=== PATIENT | male | born 1930 | race Caucasian/White ===

== ENCOUNTER 2018-10-11 11:21 | Emergency (ER) | payer MEDICARE ==
[2018-10-11] MEDS ORDERED: Morphine 4 MG/ML VIAL ONE (11:59)
[2018-10-11 12:20] LABS: #Lymphocytes 1.6 thou/uL (1.20-3.40); #Monocytes 1.5 thou/uL (0.11-0.59); %Basophils 0.2 % (0.0-1.0); %Eosinophils 0.5 % (0.0-10.0); %Lymphocytes 15.9 % (21.0-51.0); %Monocytes 14.7 % (0.0-10.0); %Neutrophils 68.7 % (42.0-75.0); Hemoglobin 11.3 g/dL (14.0-18.0); Mean Corpuscular HGB CONC 33.9 g/dL (32.0-36.0); Mean Corpuscular Hemoglobin 32.4 pg (27.0-31.0); Mean Corpuscular Volume 95.6 fL (78.0-98.0); Mean Platelet Volume 6.7 fL (7.4-10.4); Platelet Count 170 thou/uL (130-400); RBC Distribution Width 13.8 % (11.5-14.5); White Blood Cell (WBC) Count 10.1 thou/uL (4.8-10.8)
[2018-10-11 12:36] LABS: ALT (SGPT) 14 U/L (8-55); AST (SGOT) 11 U/L (5-34); Albumin 3.5 g/dL (3.4-4.8); Alkaline Phosphatase 49 U/L (40-150); Anion Gap 13 mmol/L (10-20); BUN (Urea Nitrogen) 22 mg/dL (8.4-25.7); Bilirubin, Total 0.9 mg/dL (0.2-1.2); Calc. Creatinine Clearance 0 mL/min (70-130); Calcium 8.8 mg/dL (7.8-10.44); Carbon Dioxide 23 mmol/L (23-31); Chloride 104 mmol/L (98-107); Estimated GFR-MDRD 62; Globulin 2.8 g/dL (2.4-3.5); Glucose 121 mg/dL (83-110); Potassium 3.9 mmol/L (3.5-5.1); Protein, Total 6.3 g/dL (5.8-8.1); Sodium 136 mmol/L (136-145)
--- NOTE | 2018-10-11 13:02 | CT ---
Lumbar spine CT noncontrast CLINICAL HISTORY: Pain FINDINGS: There is extensive, multilevel degenerative change throughout the lumbar spine. Evidence of posterior metallic fusion spanning posterior elements at the upper lumbar spine with marked associated osseous fusion and hypertrophy. No definite evidence of acute compression fracture. Multil evel endplate irregularities are favored to reflect degenerative sclerosis and Schmorl's node formation. No significant subluxation. Contents of vertebral canal limited in assessment on the basis of noncontrast CT imaging. 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 T here is diffuse vascular calcification. Colonic diverticulosis is present. There is a prominent right convexity curvature centered at the upper lumbar spine. Incidental note of paraspinous muscular atrophy. IMPRESSION: Extensive degenerative change throughout lumbar spine without definite acute osseous abnormality. Transcribed Date/Time: 10/11/2018 1:15 PM
[2018-10-11] MEDS ORDERED: Dexamethasone 10 MG/ML VIAL ONE (13:49)
[2018-10-11 15:53] LABS: Bilirubin Negative (Negative); Blood, Urine Negative (Negative); Clarity CLOUDY (Clear); Glucose, Urine (Dipstick) Negative (Negative); Leukocyte Large (Negative); Nitrite Positive (Negative); Protein, Urine (Dipstick) Negative (Neg-Trace); Specific Gravity, Urine 1.011 (1.002-1.036); Urobilinogen 0.2 mg/dL (0.2-1.0)
[2018-10-11 15:56] LABS: Bacteria/HPF 4+ HPF (None Seen); Hyaline Casts/LPF 4-6 HYALINE CAST LPF (0-3 Hyaline); Pathc Cast-AUWi Flag 0.27 (0-2.49); RBC/HPF 0-3 HPF (0-3)
== END 2018-10-11 18:28 ==
LOC: ERS 11:21
DX: M54.5 Low back pain (principal); R26.2 Difficulty in walking, not elsewhere classified; K21.9 Gastro-esophageal reflux disease without esophagitis; I25.10 Atherosclerotic heart disease of native coronary artery without angina pectoris; E78.5 Hyperlipidemia, unspecified; I10 Essential (primary) hypertension; Z79.899 Other long term (current) drug therapy; Z79.01 Long term (current) use of anticoagulants; Z79.82 Long term (current) use of aspirin
CPT/HCPCS: 36415; 72131; 80053; 81003; 81015; 85025; 96361; 96374; 96375; J1100; J2270

== ENCOUNTER 2018-10-28 13:39 | Inpatient (IN) | payer MEDICARE ==
[~2018-10-28 13:39] MED LIST: ISOVUE-370 76%-LOCM 1 ML ONE
[2018-10-28] MEDS ORDERED: Acetaminophen 500 MG TAB PO PRN (17:17)
[2018-10-28] MEDS ORDERED: Senokot S 8.6-50 MG TAB PO PRN (17:17)
[2018-10-28] MEDS ORDERED: hydrALAZINE 20 MG/ML VIAL SLOW IVP PRN (17:17)
[2018-10-28] MEDS ORDERED: Ondansetron PF 4 MG/2 ML Vial IVP PRN (17:17)
[2018-10-28] MEDS ORDERED: Ondansetron ODT 4 MG TAB PO PRN (17:17)
[2018-10-28] MEDS ORDERED: HYDROcodone/Acetaminophen 5/325 mg Tablet PO PRN (17:17)
[2018-10-28] MEDS ORDERED: Cyclobenzaprine 10 MG TAB PO PRN (17:55)
[2018-10-28 17:58] VITALS: BMI 27.3
[2018-10-28] MEDS ORDERED: predniSONE 20 MG TAB PO SCH (18:00)
[2018-10-28] MEDS: Mometasone/Formoterol 120 PUFF INHALER INH SCH (19:08)
[2018-10-28] MEDS: Famotidine 20 MG TAB PO SCH (19:59)
[2018-10-28] MEDS: Docusate 100 MG CAP PO SCH (19:59)
[2018-10-28] MEDS: Gabapentin 100 MG CAP PO SCH (20:00)
[2018-10-28] MEDS: Ezetimibe 10 MG TAB PO SCH (20:00)
[2018-10-28] MEDS: Melatonin 3 MG TAB PO SCH (20:00)
[2018-10-28] MEDS: Sotalol HCl 80 MG TAB PO SCH (20:00)
[2018-10-28] MEDS: cycloSPORINE 0.05% Ophthalmic Droperette EA EYE SCH (21:24)
--- NOTE | 2018-10-28 22:30 | CT ---
CT Pelvis W Con History: [Hip pain] Comparison: Radiograph October 21, 2018 Findings: The urinary bladder is markedly distended. No free fluid within the pelvis. Mild bilateral lateral thigh edema. Advanced degenerative changes of the lumbar spine. Aortic contour is nonaneurysmal there is abnormal erosions of the anterior inferior L4 and anterior superior L5 endplate on the right mild adjacent soft tissue edema. This has progressed from the October 11, 2018 examination. Aortic contour is normal. Iliac vessels are normal. There is a displaced cerclage wire along the medial components of the acetabulum near the femoral art iculation. Obturator rings are intact. Fractured inferior cerclage wire. Old right trochanter injury. Impression: Findings highly concerning for discitis/osteomyelitis at the right anterior L4/L5 intersp tom with new osseous erosion as well as adjacent fat stranding.
[2018-10-28] MEDS: HYDROcodone/Acetaminophen 5/325 mg Tablet PO PRN (22:32)
--- NOTE | 2018-10-29 00:01 | PDOC.EVN ---
Event Note - Event Note Event Note: CT of pelvis showed findings highly concerning for osteomyelitis at the right anterior L4-L5 interspace with new osseous erosion and fat stranding. Discussed with Dr. Sanders. Blood cultures pending, along with CBC and BMP. Empiric coverage with Zosyn and Vanc.
[2018-10-29 00:29] LABS: #Lymphocytes 1.3 thou/uL (1.20-3.40); #Monocytes 0.2 thou/uL (0.11-0.59); #Neutrophils 6.7 thou/uL (1.40-6.50); %Basophils 0.5 % (0.0-1.0); %Eosinophils 0.2 % (0.0-10.0); %Lymphocytes 15.5 % (21.0-51.0); %Monocytes 2.4 % (0.0-10.0); %Neutrophils 81.5 % (42.0-75.0); Hemoglobin 11.9 g/dL (14.0-18.0); Mean Corpuscular HGB CONC 33.3 g/dL (32.0-36.0); Mean Corpuscular Hemoglobin 32.4 pg (27.0-31.0); Mean Platelet Volume 6.6 fL (7.4-10.4); Platelet Count 288 thou/uL (130-400); RBC Distribution Width 13.2 % (11.5-14.5); Red Blood Cell (RBC) Count 3.68 mill/uL (4.70-6.10); White Blood Cell (WBC) Count 8.3 thou/uL (4.8-10.8)
[2018-10-29] MEDS ORDERED: Vancomycin HCl 1.75 GM in Sodium Chloride 0.9% 500 ML IVPB SCH (00:30)
[2018-10-29 00:50] LABS: Anion Gap 14 mmol/L (10-20); BUN (Urea Nitrogen) 23 mg/dL (8.4-25.7); Calc. Creatinine Clearance 74 mL/min (70-130); Carbon Dioxide 25 mmol/L (23-31); Chloride 99 mmol/L (98-107); Estimated GFR-MDRD 85; Glucose 149 mg/dL (83-110); Potassium 4.6 mmol/L (3.5-5.1); Sodium 133 mmol/L (136-145)
--- NOTE | 2018-10-29 00:59 | HP ---
PRIMARY CARE PROVIDER: Joaquin Benavidez MD CHIEF COMPLAINT: Back and right hip pain. HISTORY OF PRESENT ILLNESS: This is an 88-year-old male, who initially presented to [facility] on 10/11/2018 with complaints of right hip and lower back pain for approximately 1 week duration. The patient states he woke up with inability to sit upright or stand without severe pain in his back with radiation to the right hip and anterior thigh. The patient initially rated the pain 10/10 with activity, turning, or bending. The patient denied any direct trauma, injury, or fall, but does state he has intermittent pain in the area over the last several years. The patient has been using a cane for ambulation for stability, but denied falls. The patient was evaluated in the emergency room on 10/11/2018, and deemed an appropriate candidate for inpatient rehabilitation. The patient transferred from the emergency room to [facility] where he has been receiving directed therapy for his right hip and lower back. The patient states the pain has increased and he is unable to participate in the rehab program due to severe pain when turning, sitting up, or even attempting to eat at the bedside. The patient states the pain localizes to the right hip region with some radiation into the thigh, but rarely [id number]. The patient denies any foot drop, swelling of the lower extremities, but does state that he underwent right total hip arthroplasty in 1999. The patient has had several radiographic imaging of the hip and pelvic x-ray over the last 2 to 3 weeks without an identifiable source. The patient has been given a trial of gabapentin, [place], heat therapy, and general stretching exercises to no avail. The patient was referred to the Inpatient Hospitalist Service for further evaluation and consideration for neurosurgical and orthopedic evaluation. PAST MEDICAL HISTORY: 1. Hypertension. 2. Coronary artery disease, status post cardiac stent placement x3. 3. Obstructive sleep apnea. 4. Osteoarthritis, status post right total hip arthroplasty. 5. 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 6. History of scoliosis, status post lumbar surgical repair in the 1950s. 7. Heart block, status post pacemaker placement. PAST SURGICAL HISTORY: 1. Status post cardiac stent placement x3. 2. Status post coronary artery bypass grafting. 3. Status post right total hip arthroplasty in 1999. 4. Status post lumbar spine surgery. 5. Status post pacemaker placement. 6. Status post tonsillectomy. CURRENT MEDICATIONS: 1. Eliquis 5 mg p.o. b.i.d. 2. Colace 100 mg p.o. b.i.d. 3. Zetia 10 mg p.o. at bedtime. 4. Breo Ellipta 200/25 mcg inhaled daily. 5. Gabapentin 200 mg p.o. t.i.d. 6. [place] 5/325 mg 1 to 2 tablets p.o. q.4 to 6 hours p.r.n. 7. Melatonin 3 mg p.o. at bedtime. 8. Protonix 40 mg p.o. daily. 9. MiraLAX 17 g p.o. daily. 10. Ranexa 1000 mg p.o. b.i.d. 11. Restasis ophthalmic drops 1 drop to each eye b.i.d. 12. Sotalol 120 mg p.o. b.i.d. 13. Flomax 0.8 mg p.o. daily. ALLERGIES: CAPTOPRIL, HYDROCHLOROTHIAZIDE, PRAVACHOL. FAMILY HISTORY: No inheritable diseases per patient's report. SOCIAL HISTORY: The patient is a lifetime resident of [facility]. Retired. No current alcohol, tobacco, or illicit drug use. Ambulates with the use of a cane or rolling walker. . REVIEW OF SYSTEMS: CONSTITUTIONAL: Negative for weight loss or gain, ability to conduct usual activities. SKIN: Negative for rash, itching. EYES: Negative for double vision, pain. ENT/MOUTH: Negative for nose bleeding, neck stiffness, pain, tenderness. CARDIOVASCULAR: Negative for palpitations, dyspnea on exertion, orthopnea. RESPIRATORY: Negative for shortness of breath, wheezing, cough, hemoptysis, fever or night sweats. GASTROINTESTINAL: Negative for poor appetite, abdominal pain, heartburn, nausea, vomiting, constipation, or diarrhea. GENITOURINARY: Negative for urgency, frequency, dysuria, nocturia. MUSCULOSKELETAL: Positive tenderness to palpation in the right lateral gluteal region and acetabular and greater trochanter region on the right. Reproducible tenderness to palpation with deep palpation in the piriformis distribution. Mild tenderness to palpation in the right SI joint region. Postsurgical changes noted in the lumbar spine. No erythema or evidence of cellulitis. Full passive range of motion of the hip with mild tenderness elicited with internal rotation. NEUROLOGIC/PSYCHIATRIC: Negative for anxiety, depression. ALLERGY/IMMUNOLOGIC: Negative for skin rash, bleeding tendency. Otherwise, negative except as stated per HPI. PHYSICAL EXAMINATION: VITAL SIGNS: On admission, blood pressure 136/74, pulse 66, respiratory rate 16, temperature 98.8 degrees Fahrenheit, and O2 saturation 98% on room air. GENERAL APPEARANCE: This is an 88-year-old male, alert and oriented x3, pleasant, responsive, and in no acute distress. HEENT: Pupils are equal, round, reactive to light and accommodation. Extraocular muscles are intact. No scleral icterus. No conjunctival injection. Nares patent. OP is clear. Teeth in fair repair. NECK: Supple. No cervical adenopathy. No thyromegaly. No carotid bruits. No JVD appreciated. Cervical spine with full active and passive range of motion. No meningeal signs noted. CHEST: Lungs are clear to auscultation bilaterally. CARDIOVASCULAR: S1 and S2 without noted murmur, rub, or gallop. ABDOMEN: Rounded, soft, nontender, and nondistended. Bowel sounds are positive in all 4 quadrants. There is no hepatosplenomegaly. No abdominal bruits. No rebound or guarding appreciated. EXTREMITIES: Warm and dry with fair turgor. No clubbing, cyanosis, or asymmetric edema noted of bilateral lower extremities. Pulses palpable distally at the dorsalis pedis, posterior tibial, and popliteal arteries bilaterally. Capillary refill less than 2 seconds. NEUROLOGIC: Cranial nerves 2 through 12 are grossly intact. No focal or lateralizing signs appreciated. PERTINENT LABORATORY DATA AND X-RAY FINDINGS: Laboratory data reviewed from 10/16/2018 showed basic metabolic profile within normal limits. BNP 355 on 10/16/2018. CBC showed a white blood cell count 8.6, hemoglobin 11, hematocrit 34, and platelet count 225 with normal differential. Pelvic radiographs dated 10/20/2018 showed abnormal lucency surrounding the acetabular component on the right. Question of dislocation of the right hip prosthesis. Three views of the right hip dated 10/21/2018 showed no evidence for dislocation. ASSESSMENT AND PLAN: 1. Intractable lumbar/right hip pain. The patient will be admitted to the surgical floor. Suspect musculoskeletal in origin with piriformis etiology. Check CT of the pelvis with attention to the right hip to confirm hardware placement. Trial prednisone 40 mg daily. Add Flexeril 5 mg p.o. b.i.d. p.r.n. muscle spasm. Continue gabapentin 200 mg p.o. t.i.d. [id number] exercises. Consult Orthopedic Surgery and Neurosurgical Services for evaluation to rule out more proximal or nerve impingement. 2. Lumbar radiculopathy. We will consult Neurosurgical Services for any further recommendations. The patient likely will benefit from CT myelogram; however, will need to be off anticoagulation with Eliquis x7 days. See #1 above. 3. Chronic anticoagulation. Eliquis on hold currently. See #2 above. 4. Hypertension. Resume home blood pressure regimen and monitor clinical response. 5. Chronic normocytic anemia. Stable currently. No current evidence to suggest acute blood loss. Repeat CBC in the a.m. 6. Prophylaxis. SCDs while in bed. Protonix 40 mg p.o. daily. PT/OT evaluation for functional assessment. General fall risk precautions. 7. Code status is full. Surrogate medical decision maker is the patient's spouse. Job ID: [id number]
[2018-10-29] MEDS: Piperacillin/Tazobactam 4.5 GM in Sodium Chloride 0.9% 100 ML IVPB SCH ×3 (05:10→22:13)
[2018-10-29 05:29] LABS: Anion Gap 13 mmol/L (10-20); BUN (Urea Nitrogen) 24 mg/dL (8.4-25.7); Calc. Creatinine Clearance 75 mL/min (70-130); Calcium 8.7 mg/dL (7.8-10.44); Carbon Dioxide 26 mmol/L (23-31); Chloride 101 mmol/L (98-107); Estimated GFR-MDRD 87; Glucose 140 mg/dL (83-110); Potassium 4.6 mmol/L (3.5-5.1); Sodium 135 mmol/L (136-145)
[2018-10-29 05:31] LABS: Mean Corpuscular HGB CONC 32.8 g/dL (32.0-36.0); Mean Corpuscular Hemoglobin 31.9 pg (27.0-31.0); Mean Corpuscular Volume 97.2 fL (78.0-98.0); Mean Platelet Volume 6.7 fL (7.4-10.4); Platelet Count 288 thou/uL (130-400); RBC Distribution Width 13.3 % (11.5-14.5); Red Blood Cell (RBC) Count 3.46 mill/uL (4.70-6.10)
[2018-10-29 05:32] LABS: Hypochromia SLIGHT = 6-15 cells (100X) (0-5/hpf); Lymphocytes 10 % (21-51); MDiff Complete? YES; Monocytes 6 % (0-10); Neutrophil 84 % (42-75); Platelet Morphology Comment Appears Adequate
[2018-10-29] MEDS: Mometasone/Formoterol 120 PUFF INHALER INH SCH ×2 (07:30→18:15)
[2018-10-29] MEDS: Famotidine 20 MG TAB PO SCH ×2 (08:45→20:28)
[2018-10-29] MEDS: Gabapentin 100 MG CAP PO SCH ×3 (08:45→20:27)
[2018-10-29] MEDS: Sotalol HCl 80 MG TAB PO SCH ×2 (08:45→20:26)
[2018-10-29] MEDS: Tamsulosin HCl 0.4 MG CAP PO SCH (08:45)
[2018-10-29] MEDS: Polyethylene Glycol 3350 17 GM Packet PO SCH (08:45)
[2018-10-29] MEDS: Vancomycin HCl 1 GM in Premix Bag 1 BAG IVPB SCH ×2 (08:45→20:28)
[2018-10-29] MEDS: predniSONE 20 MG TAB PO SCH (08:46)
[2018-10-29] MEDS: Docusate 100 MG CAP PO SCH ×2 (08:46→20:28)
[2018-10-29] MEDS: cycloSPORINE 0.05% Ophthalmic Droperette EA EYE SCH ×2 (08:49→20:28)
[2018-10-29] MEDS ORDERED: Non-Formulary Item 1 EACH (Fluticasone/Vilanterol [Breo Ellipta 200-25 Mcg Inh] 1 EACH) IH SCH (09:00)
--- NOTE | 2018-10-29 12:38 | CON ---
DATE OF CONSULTATION: 10/29/2018 CONSULTING PHYSICIAN: Julio Cesar Pope MD REASON FOR CONSULTATION: Right hip and thigh pain. BRIEF CLINICAL HISTORY: Vicente is an 88-year-old white male, who has a complex history of subacute right hip and buttock pain, which started 3 to 4 weeks ago resulting in the patient being admitted from home into inpatient rehabilitation. While over there, he has been evaluated with a lumbar CT and thoughts of whether or not, he had a high lumbar radiculopathy. CT myelogram then obtained and he has been treated, but with epidural steroids and selective injections, I believe, during his convalescence there. He failed to get appreciable better and his chief complaint now is that he cannot stand and walk as he did 2 or 3 weeks ago. His surgical history is significant for a primary hip arthroplasty in 1999 here in [place] by physicians no longer practicing here. A revision arthroplasty was used as a primary of note, but he has not had any trouble out of it since for the last 18 to 19 years. Only recently has given him any trouble, which required hospitalization. He has been admitted to the hospital for neurosurgical and orthopedic evaluation. PAST MEDICAL HISTORY: Significant for coronary artery bypass grafting. He has had lumbar spine surgery, pacemaker implantation, and vascular disease. He has hypertension, obstructive sleep apnea, and history of heart block. MEDICATIONS: 1. Eliquis. 2. Colace. 3. Zetia. 4. Gabapentin. 5. Melatonin. 6. [place]. 7. Protonix. 8. MiraLAX. 9. Ranexa. 10. Sotalol. 11. Flomax. SOCIAL HISTORY: He is a lifetime resident of the area and he denies any ethanol or tobacco use or illicit drug abuse currently. He is . He ambulates with use of a rolling walker, but that has been very difficult for the last week or two. REVIEW OF SYSTEMS: Denies any fever, chills, nausea, vomiting, or constitutional symptoms. PHYSICAL EXAMINATION: EXTREMITIES: Visual inspection of the right lower extremity demonstrates him to have provocative pain with range of motion of the right hip. It appears to have a nice pivot point and does not feel as if it is dislocated. There is some shortening noted, but there is no external rotation and I do not feel the hip is dislocated at this point. He is neurovascularly intact in the extremity. He has provocative pain with internal-external rotation. IMAGING STUDIES: Two views of right hip demonstrates lucency around his prosthesis with suggestion of loosening of the acetabular cup and what I think might be an effusion. IMPRESSION: Right hip periprosthetic effusion. X-ray suggestive of loosening. PLAN: 1. Sedimentation rate, C-reactive protein have been ordered and will be drawn. 2. We will schedule a directed fluoroscopic-guided arthrocentesis of the right hip concerning for effusion. Consider bone scan if this is nonproductive. Job ID: [id number]
--- NOTE | 2018-10-29 14:45 | RAD ---
Right total hip prosthetic joint fluoroscopic guided aspiration INDICATION: Concern for infected right total hip prosthesis TECHNIQUE: Informed consent was obtained. A preprocedure timeout was performed. Preprocedure software technical lead im ages were performed. Site overlying the anterolateral aspect of the right hip was marked. The site was prepped and draped in the usual sterile fashion. Buffered 1% lidocaine was administered to the ov erlying subcutaneous tissues. Under fluoroscopic guidance, an 18-gauge spinal needle was guided down into the right hip joint by fluoroscopy. There was aspiration of 4 cc of a yellow appearing slig htly sanguinous synovial fluid. The patient tolerated the aspiration without difficulty. The total fluoroscopic time was 0.3 minutes. Total exposure was 46.1 mcg/sq m. The aspiration site was cleansed and bandaged. FINDINGS: The software technical lead images are compared to a right hip radiograph dated 10/21/2018. The displaced righ t greater trochanteric periprosthetic fracture is unchanged. The fractured cerclage band is unchanged. The prosthetic components project in expected position and do not appear to have intervall y migrated. There are scattered vascular calcifications within the adjacent soft tissues. IMPRESSION: Successful right total hip prosthetic joint aspiration with retrieval of 4 cc of yellow s lightly sanguinous synovial fluid. The fluid was placed in a sterile container and escorted to the pathology department for further evaluation.
--- NOTE | 2018-10-29 17:06 | PRG ---
DATE OF SERVICE: SUBJECTIVE: The patient feels okay at the moment, fairly comfortable, tolerated the hip joint aspiration today well. OBJECTIVE: VITAL SIGNS: Temperature 98.8, pulse 63, respirations 16, O2 saturation 99% on room air, and BP 137/64. GENERAL APPEARANCE: Age-appropriate male, in no distress. He is awake, alert, oriented, pleasant, and cooperative. HEART: Regular rate and rhythm without murmurs, gallops or rubs. LUNGS: Clear to auscultation bilaterally. ABDOMEN: Soft, nontender, and nondistended. Positive bowel sounds. EXTREMITIES: Warm and dry with no cyanosis, clubbing or edema. LABORATORY DATA: White count 8.0 and hemoglobin 11. Chemistry; sodium 135 and glucose 140. IMPRESSION AND PLAN: 1. Right low back and hip pain, etiology unclear. The patient was in rehab and had epidural injections there, which did not work to resolve his pain after he failed oral pain medications. The patient has been seen by in consultation by Ortho and Neurosurgery. There was some concern for the possibility of right hip joint effusion and he had CT-guided aspiration of that today. There is also concern the patient will need a myelogram, but he was on anticoagulation, which has been held, I believe he was on Eliquis and it does not appear as though he has had any since he has been here and seemed to do well with the joint aspiration today so far with no evidence of any complications. The patient did have a myelogram in August 2016 showing severe osteophyte formation at multiple levels at that time. Pending the results of the aspirate, may need a bone scan or further workup with a CT myelogram. Of note, the patient's CT of the pelvis did show some concern for possible osteomyelitis at L4-L5, which while is still a possibility, likely represents artifact residual from his epidural steroid injection in rehab. In the meantime, continue with pain medications as needed. 2. History of coronary artery disease, stable. He is status post coronary artery bypass graft and stents. 3. History of chronic anticoagulation, currently being held. 4. Hypertension, stable. 5. Chronic normocytic anemia, stable. Job ID: [id number]
[2018-10-29] MEDS: Melatonin 3 MG TAB PO SCH (20:27)
[2018-10-29] MEDS: Ezetimibe 10 MG TAB PO SCH (20:27)
--- NOTE | 2018-10-30 00:07 | CON ---
DATE OF CONSULTATION: REASON FOR CONSULTATION: Possible infection, lumbosacral spine area. HISTORY OF PRESENT ILLNESS: An 88-year-old patient who has a history of hypertension, coronary artery disease, obstructive sleep apnea, and osteoarthritis, who was admitted with right hip and lower back pain for the past week before admission. This has resulted in severe mobility impairment. He was initially transferred to [facility] where he was receiving physical therapy; but because of worsening of the pain, he was transferred to the hospital for further evaluation. Initial findings showed a BP 130/70, pulse 66, respirations 16, temperature 98.8, O2 saturation 98%. He was alert and oriented and did not appear in distress. Neck was supple. Chest with clear lungs. Abdomen, nontender, not distended. There is no description of his back here. Initial white cell count was 8.6, hematocrit 34, platelets 225. The patient had a lumbar spine CT from 10/11/2018, it showed extensive degenerative changes throughout the lumbar spine but no acute osseous abnormality. The patient had a pelvis CT yesterday which showed erosions of the anterior inferior L4 and anterior superior L5 endplate on the right with mild adjacent soft tissue edema, which has progressed from 10/11/2018 exam. Also displaced cerclage wire along the medial components of the acetabulum was noted, so the findings were concerning for diskitis osteomyelitis of the L4-L5 interspace. Currently, Mr. Moreno is surprised that his pain has improved quite rapidly since he was admitted. He denies any headaches. No visual symptoms, sore throat, odynophagia, or dysphagia. No cough, sputum production, or chest pain. No dyspnea. No abdominal pain. He is voiding in the diaper. He is able to move his feet. He cannot sit up without eliciting too much pain. PAST MEDICAL HISTORY: Hypertension, coronary artery disease, JENN, osteoarthritis, chronic low back pain with exacerbation, scoliosis, heart block with pacemaker. PAST SURGICAL HISTORY: Cardiac stent, bypass graft surgery, right hip arthroplasty, laminectomy, pacemaker placement. ALLERGIES: CAPTOPRIL, HYDROCHLOROTHIAZIDE, AND PRAVACHOL. FAMILY HISTORY: Noncontributory. SOCIAL HISTORY: Never smoker. . CURRENT MEDICATIONS: 1. Tylenol. 2. [place]. 3. Flexeril. 4. Restasis. 5. Colace. 6. Zetia. 7. Pepcid. 8. Neurontin. 9. Apresoline. 10. Melatonin. 11. Dulera. 12. Zofran. 13. Protonix. 14. Zosyn. 15. Prednisone. 16. Ranolazine. 17. Betapace. 18. Tamsulosin. 19. Vancomycin. It looks like the prednisone was started here in the hospital and he was not taking it at home according to the list provided. PHYSICAL EXAMINATION: VITAL SIGNS: T-max 98.8, blood pressure 150/99, pulse 63. SKIN: The patient has a peripheral IV access. No Pandey catheter. He did have some urinary retention and had to have a Pandey catheterization, but that has been removed. He is voiding every hour on the hour approximately. HEENT: No lymphadenopathy. Ocular movements conjugate. Oral cavity moist, quite a few missing teeth. NECK: Supple. No jugular venous distention. LUNGS: Symmetric. Clear breath sounds. HEART: S1 and S2. Regular rate. No S3 or S4. ABDOMEN: Soft. Not distended or tender. No ascites. Question of bladder distention. EXTREMITIES: Limitation of mobility because of elicited pain in the lower back. Range of motion of the right hip is limited with pain induced. Pulses are 1+ in dorsalis pedis. No edema. NEURO: He is awake, oriented, follows commands. Speech is normal. Recollection is somewhat limited. LABORATORY DATA: White cell count 8.3 and 8.0, hemoglobin 11.9, MCV 97, platelets 288, 81% neutrophils. Sodium 133, creatinine 0.85, glucose 149, CRP 1.54. Previous urinalysis is from 10/15/2018, with greater than 50, dqp-[id number]-count wbc's. Microbiology, we have E coli from urine long time ago, but more recently Klebsiella pneumoniae, which has a broad susceptibility profile except for cefoxitin and nitrofurantoin. The reports have been discussed above. The patient had a joint aspiration and injection by Dr. Warner. There was 4 mL of yellow slightly sanguinous synovial fluid. This was submitted for culture. ASSESSMENT: 1. Osteoarthrosis. 2. Previous right hip replacement. 3. Chronic lumbosacral spine pain with exacerbation for the past few weeks. 4. Worsening findings in the x-ray of the lumbosacral spine with concern for L4-L5 diskitis and osteomyelitis, and concern with the right hip prosthesis as well in view of the pain radiating to that area. DISCUSSION: Right hip prosthetic changes are not specific for infection. Prosthetic joint infection is notoriously difficult to diagnose. Cultures may be negative sometimes. There is a new test which can identify early prosthetic infections, but I do not think they offer here in town. It would have to be send out and has to be submitted the same day, so I do not believe we would be able to run this test. It is basically a panel or they submit a series of chemical tests from the joint fluid and according to his score of the various components, then the likelihood of presence of joint infection is given. Regarding the findings in the lumbosacral spine, typically those are sometimes not very specific for infection and it is difficult to rule out infection in this circumstance and there are no imaging studies short of having an MRI done that would be able to clarify this issue. Some pacemakers allow MRI performance with certain precautions and conceivably one could inquire with Radiology as to the possibility of performing an MRI and it will depend on the type of pacemaker that was inserted, but again that the newer pacemakers allow performance of MRIs as long as certain types of precautions are taken regarding the function of the pacemaker during the procedure and after as well. Short of that, spinal CT-guided needle aspirates have low yield in the lumbosacral spine unless there is a clear-cut abscess which is not present in this case. We may have to treat empirically with probably Rocephin and vancomycin for a protracted period of time. Job ID: [id number]
[2018-10-30] MEDS: Piperacillin/Tazobactam 4.5 GM in Sodium Chloride 0.9% 100 ML IVPB SCH ×3 (05:22→22:16)
[2018-10-30] MEDS: Mometasone/Formoterol 120 PUFF INHALER INH SCH ×2 (07:06→19:17)
[2018-10-30 09:01] LABS: Vancomycin, Trough 16.5 ug/mL
[2018-10-30] MEDS: Famotidine 20 MG TAB PO SCH ×2 (09:12→20:19)
[2018-10-30] MEDS: Polyethylene Glycol 3350 17 GM Packet PO SCH (09:12)
[2018-10-30] MEDS: Sotalol HCl 80 MG TAB PO SCH ×2 (09:12→20:15)
[2018-10-30] MEDS: Vancomycin HCl 1 GM in Premix Bag 1 BAG IVPB SCH ×2 (09:12→20:19)
[2018-10-30] MEDS: predniSONE 20 MG TAB PO SCH (09:13)
[2018-10-30] MEDS: Gabapentin 100 MG CAP PO SCH ×3 (09:13→20:14)
[2018-10-30] MEDS: Tamsulosin HCl 0.4 MG CAP PO SCH (09:13)
[2018-10-30] MEDS: Docusate 100 MG CAP PO SCH ×2 (09:19→20:19)
[2018-10-30] MEDS: cycloSPORINE 0.05% Ophthalmic Droperette EA EYE SCH ×2 (09:19→22:16)
--- NOTE | 2018-10-30 15:58 | PRG ---
DATE OF SERVICE: 10/30/2018 SUBJECTIVE: The patient reports he is perfectly comfortable. He is lying flat, attempted to get up and on the side of bed this morning and it did not go well at all because he had severe pain. He reports the pain was both in his back and his hip area. OBJECTIVE: VITAL SIGNS: Temperature is 98.1, pulse is 59, respirations 18, O2 sats 93% to 95% on room air, and blood pressure 140/73 to 162/76. GENERAL APPEARANCE: Age-appropriate male. He is in no distress. He is awake, alert, oriented, pleasant, and cooperative. HEART: Regular rate and rhythm without murmur. LUNGS: Clear bilaterally. ABDOMEN: Soft and nontender. EXTREMITIES: Warm and dry with no cyanosis, clubbing, or edema. The patient has significant pain in the back and hip area with attempts at movement. IMPRESSION AND PLAN: 1. Lumbar and right hip pain. Etiology is currently unclear. The possibility of the right hip joint with potential infection, lumbar diskitis/osteomyelitis based on the CT scan and nerve root entrapment with radiculopathy. The patient had lumbar myelogram in August 2016 revealing multilevel degenerative disease with significant and even critical lumbar stenosis. I discussed case with Dr. Calhoun today by phone. He reviewed his records and certainly the patient was not a good surgical candidate then and he believes it is certainly very possible if not probable that is the source of his symptoms currently, recommends repeating the myelogram at this time, which he will order. The patient has been off the Eliquis at least 4 days now. He will follow up with the patient after the myelogram is obtained. He is on vancomycin and Zosyn. He is followed by Dr. Kee, although at this point, without a white count, fever and therapy and sedimentation rate, which are not overwhelming, appears to be less likely that this is infectious in nature. Hip joint aspirate so far has negative culture as well. In the meantime, we will continue with pain management. 2. History of coronary artery disease. The patient also had significant peripheral vascular disease and aortic disease on previous images. He has a history of bypass. Continuing with usual home medication regimen. 3. Hypertension, stable. 4. Chronic normocytic anemia, stable. Job ID: [id number]
--- NOTE | 2018-10-30 16:39 | NM ---
Three-phase bone scan INDICATION: Concern for a right hip prosthetic loosening Radiopharmaceutical: 28.3 mCi of technetium 99m MDP IV FINDINGS: There is no abnormal flow, blood pool or delayed phase activity seen surrounding the patien t's right hip prosthesis to suggest scintigraphic evidence of loosening. The exam is slightly limited due to a prominent amount of urinary contamination overlying the pelvis. There is some sugges kaylee increased flow, blood pool and delayed phase activity about the L4-5 intervertebral level which on a prior CT pelvis examination (on October 28, 2018) was suspicious for involvement of discitis and oste omyelitis. Degenerative activity is seen involving the spine, shoulders, knees and feet. IMPRESSION: 1. 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 2. No definite scintigraphic evidence to suggest right hip prosthetic loosening. 3. Limitations in exam due to prominent urinary contamination
[2018-10-30] MEDS: Melatonin 3 MG TAB PO SCH (20:14)
[2018-10-30] MEDS: Ezetimibe 10 MG TAB PO SCH (20:19)
[2018-10-31] MEDS: Piperacillin/Tazobactam 4.5 GM in Sodium Chloride 0.9% 100 ML IVPB SCH ×3 (05:48→22:27)
[2018-10-31] MEDS: Mometasone/Formoterol 120 PUFF INHALER INH SCH ×2 (06:45→18:45)
[2018-10-31] MEDS: Gabapentin 100 MG CAP PO SCH ×3 (08:29→20:19)
[2018-10-31] MEDS: Tamsulosin HCl 0.4 MG CAP PO SCH (08:29)
[2018-10-31] MEDS: Famotidine 20 MG TAB PO SCH ×2 (08:29→20:18)
[2018-10-31] MEDS: Sotalol HCl 80 MG TAB PO SCH ×2 (08:29→20:19)
[2018-10-31] MEDS: predniSONE 20 MG TAB PO SCH (08:30)
[2018-10-31] MEDS: Vancomycin HCl 1 GM in Premix Bag 1 BAG IVPB SCH ×2 (08:30→20:17)
[2018-10-31] MEDS: Docusate 100 MG CAP PO SCH ×2 (08:47→20:19)
[2018-10-31] MEDS: Polyethylene Glycol 3350 17 GM Packet PO SCH (08:48)
[2018-10-31] MEDS: cycloSPORINE 0.05% Ophthalmic Droperette EA EYE SCH ×2 (08:48→20:25)
--- NOTE | 2018-10-31 10:38 | RAD ---
XR Myelogram Lumbar Spine History: [Pain. Low back pain.] Comparison: CT pelvis October 28, 2018 Findings: Electrotype Servicer radiograph of the abdomen were performed. There are some erosive changes of the right L4/L5 disc space. The exam was not performed as the patient has an infection at L4/L5, discitis osteomyelitis. Advanced degenerative changes throughout the lumbar spine. Impression: Exam not performed due to high risk of intrathecal seeding of infection.
--- NOTE | 2018-10-31 12:56 | PRG ---
DATE OF SERVICE: 10/31/2018 SUBJECTIVE: Mr. Moreno has experienced some improvement in the back pain, but still functionally/mobility impaired. No headaches. No dyspnea or chest pain. No abdominal pain, and he is voiding in the diaper. He has had difficulty in emptying his bladder reportedly. OBJECTIVE: VITAL SIGNS: T-max 98.2, blood pressure 150/90, pulse 67, respirations 16, and O2 saturations 97%. GENERAL: Awake, alert, and oriented. Does not appear in distress. HEENT: Ocular movements conjugate. NECK: Supple. LUNGS: Symmetric, clear breath sounds. CARDIOVASCULAR: S1 and S2, regular rate. ABDOMEN: Soft, not distended. Question of bladder distention. MUSCULOSKELETAL: Still tenderness on mobilization of his waistline and lower extremities from back pain. LABORATORY DATA: White cell count 8.0, hemoglobin 11, platelets 288, 84% neutrophils. Sodium 135, creatinine 0.84. Microbiology, we have negative joint aspirate culture, this is from the hip. I do not think that joint is infected, although it is hard to completely rule it out, a prosthetic joint infection is notoriously difficult to establish the diagnosis. Two sets of blood culture, no growth thus far. The patient had bone scan, which shows uptake in the area of interest and a myelogram was planned, but was canceled by Radiology because of concerns with the area of infection. ASSESSMENT AND DISCUSSION: Osteoarthrosis, previous right hip replacement, chronic lumbosacral spine pain with exacerbation for the past few weeks and worsening findings in the CT scan of the lumbosacral spine with concern for L4-L5 diskitis, osteomyelitis. At this point, I would recommend to continue treatment with IV meropenem and vancomycin in view of the previously identified extended-spectrum beta-lactamase Escherichia coli from urine samples in the past. Continue treatment until the end of November. The endpoint will be improvement of pain and improvement of radiological findings down the road, but pain improvement will be the primary endpoint. Job ID: [id number]
--- NOTE | 2018-10-31 13:03 | PRG ---
DATE OF SERVICE: 10/31/2018 We reviewed the notes of my colleague, Ms. Dillon. Mr. Moreno is an 88-year-old man, known to our Neurosurgical Team, Dr. Calhoun. There was question as to whether the patient had lumbar osteo, diskitis or hip pathology including hip prosthetic infection. I have spoken with our orthopedic colleagues and they do not think that he has a fracture of the hip or orthopedic issue. It is likely coming from his lumbar spine. We cannot get an MRI of the lumbar spine as he has a pacemaker in. It sounds like Dr. Pickens has already spoken with Dr. Calhoun and they are making arrangements regarding possible CT myelogram of the lumbar spine. The patient has significant spondylitic spine with scoliosis and stenosis. I will defer to them as it sounds like this workup is already in the process of being carried out. It should be also noted that Dr. Kee is following and they are maybe empirically treating him for osteo, diskitis. Job ID: [id number]
--- NOTE | 2018-10-31 13:09 | PRG ---
DATE OF SERVICE: 10/31/2018 SUBJECTIVE: The patient is a little better with therapy this morning, still having some difficulty with any position other than lying flat. He has no other new complaints. OBJECTIVE: VITAL SIGNS: Temperature 98.1, pulse 67, respirations 16, O2 saturation 97% on room air, BP 139/75 with 158/98. GENERAL APPEARANCE: Age-appropriate male, in no distress. Awake, alert, oriented, pleasant, and cooperative. HEART: Regular rate and rhythm without murmurs, gallops, or rubs. LUNGS: Clear bilaterally. ABDOMEN: Benign. EXTREMITIES: No cyanosis, clubbing, or edema. IMAGING STUDIES: The myelogram was canceled due to scalp films showing some aggressive changes at L4-L5. IMPRESSION AND PLAN: 1. Back and hip pain. I talked to the radiologist to ultimately determine if we could do an MRI to help confirm the findings on the potential diskitis/osteomyelitis at L4-L5 with the patient's pacemaker. In discussing it with Dr. Miranda, he is convinced that what he is seeing on the CT scan represents clear evolution from the CT scan that was done a couple of weeks ago and represents infectious osteomyelitis/diskitis with some phlegmonous changes extending around to the L4-L5 nerve root and does not believe further imaging will change that. I notified Dr. Ellison of these findings. Also, I have talked to Dr. Kee and casey saw operator as well as the patient. At this point, the plan would be to continue IV antibiotics and allow Dr. Kee to tailor those to the appropriate long-term plan. He will need a PICC line placed and will likely need to go to some type of rehab setting where he can continue to get the IV antibiotics and rehab as the infection/inflammation resolves, so that he can get back on his feet a little better at which time he maybe able to continue as an outpatient. 2. History of coronary artery disease, stable. 3. History of peripheral vascular disease, stable. 4. Hypertension, adequately controlled. 5. Chronic normocytic anemia, stable. Total time dedicated to this patient's visit was 34 minutes. Job ID: [id number]
--- NOTE | 2018-10-31 16:20 | SPC ---
10/31/18 PROCEDURE: PERIPHERAL INSERTION CENTRAL CATHETER INDICATIONS: dedicated intermodal truck driver IV antibiotic treatment for osteomyelitis. FINDINGS: A single lumen 5 Finnish PICC line placed in the right upper extremity via the right basilic vein usin g ultrasound guidance with fluoroscopic confirmation. The tip is positioned in the SVC. PROCEDURE NOTE: Right upper extremity is prepped and draped in the sterile manner. Veins were evaluated with ultrasou nd. The basilic vein in the mid to proximal humerus region was selected for puncture. Local anesthesi a was administered with lidocaine. The vein was punctured under ultrasound guidance with micropunctur e technique. Wire was introduced into the vein. The wire was advanced into the SVC. Catheter length w as then measured and cut. Sheath was placed over the wire. The catheter was then advanced over the wi re. Peel away sheath was removed. The wire was removed. The catheter was flushed and secured with a s terile dressing. There were no problems or complications. POS: [facility]
--- NOTE | 2018-10-31 17:17 | CON ---
DATE OF CONSULTATION: DICTATED: Dr. Reddy Chowdhury. This is a 50-minute initial patient evaluation of which greater than 50% of the exam was spent in counseling and coordinating the patient's care. Remainder of the exam was spent in review of the patient's medical records and review of appropriate imaging studies. CHIEF COMPLAINT: Low back pain with right hip anterior thigh pain. HISTORY OF PRESENT ILLNESS: Mr. Moreno is an 88-year-old male who presents to [facility] for the above complaints. He also has a history of multiple back surgeries and right hip replacement. He states his pain has been present for the past 1 to 2 weeks. However, he has noted over the last few days that he has been admitted to the hospital improvement in his symptoms. He notes no pain when he is lying flat, but anytime he is attempting to mobilize, he has significant right hip pain. He denies recent falls. He does use a cane for ambulation when at home. He was also admitted to inpatient rehab when he initially presented to the emergency room on 10/11/2018, however, states he felt as though he received no benefit from being there. Apparently, his right hip surgery was done in the year 1999. I should note he is also on Eliquis at home for significant cardiac history including pacemaker as well as stents and CABG. Review of the patient's past myelogram CT scan shows no indication of infection at that time in regard to diskitis or osteomyelitis, although this is better evaluated by an MRI. Orthopedic team has been following the patient and even aspirated the patient's hip, which at this point has not grown back anything in regard to cultures. He also had blood cultures drawn, which preliminarily no growth. Dr. Kee is seeing the patient as well, and the patient is currently on penicillin antibiotics as well as vancomycin. I should also note that his ESR is elevated as well as his CRP, which typically is an indication of some sort of infectious process. PHYSICAL EXAMINATION: The patient is awake, alert, and appropriate. He has very good strength in the bilateral lower extremities with intact sensation to light touch throughout. The patient appears to be rather comfortable while lying in bed. DIAGNOSES: 1. Low back pain with right hip pain. 2. Status post right hip aspiration secondary to right hip replacement in 1999. 3. Coronary artery disease, coronary artery bypass grafting and stents, pacemaker, on Eliquis. PLAN: At this time, we would like to ensure that the patient is completely infection-free prior to proceeding with a myelogram CT scan of the lumbar spine. I have discussed this in great detail with the patient and again we would like to make sure that he clears his infection. Likely, we will follow up with him in the next 4 to 6 weeks again to ensure that all of his hip issues are not causing his back issues. Again, I think there is significant risk in the patient undergoing a myelogram CT scan until again he is further evaluated in regard to infectious process. At this time, there is no role for neurosurgical intervention. May be likely that the patient's hip issues are causing his back issues, although of course, there may always be a component of lumbar spine issues causing radicular hip pain. Nonetheless, we will follow up with the patient on an outpatient basis, and he will have to be off his Eliquis prior to any myelogram as well. At this point, I see no reason for the patient not to go back on his Eliquis as again the myelogram can be done on an outpatient basis. Please call with any changes in the patient's neurologic status. Job ID: [id number]
[2018-10-31] MEDS: Apixaban 5 MG TAB PO SCH (20:18)
[2018-10-31] MEDS: Ezetimibe 10 MG TAB PO SCH (20:19)
[2018-10-31] MEDS: Melatonin 3 MG TAB PO SCH (20:19)
[2018-11-01] MEDS: Piperacillin/Tazobactam 4.5 GM in Sodium Chloride 0.9% 100 ML IVPB SCH ×3 (06:38→22:28)
[2018-11-01] MEDS: Mometasone/Formoterol 120 PUFF INHALER INH SCH ×2 (08:25→22:14)
[2018-11-01] MEDS: Vancomycin HCl 1 GM in Premix Bag 1 BAG IVPB SCH ×2 (08:30→20:42)
[2018-11-01] MEDS: Apixaban 5 MG TAB PO SCH ×2 (08:31→20:40)
[2018-11-01] MEDS: Tamsulosin HCl 0.4 MG CAP PO SCH (08:31)
[2018-11-01] MEDS: Famotidine 20 MG TAB PO SCH ×2 (08:31→20:41)
[2018-11-01] MEDS: cycloSPORINE 0.05% Ophthalmic Droperette EA EYE SCH ×2 (08:31→20:53)
[2018-11-01] MEDS: Gabapentin 100 MG CAP PO SCH ×3 (08:31→20:42)
[2018-11-01] MEDS: predniSONE 20 MG TAB PO SCH (08:31)
[2018-11-01] MEDS: Sotalol HCl 80 MG TAB PO SCH ×2 (08:32→20:41)
[2018-11-01] MEDS: Polyethylene Glycol 3350 17 GM Packet PO SCH (08:33)
[2018-11-01] MEDS: Docusate 100 MG CAP PO SCH ×2 (08:33→20:44)
--- NOTE | 2018-11-01 10:08 | PRG ---
DATE OF SERVICE: 10/31/2018 SUBJECTIVE: Vicente is an 88-year-old white male with a complex medical history of intense debilitating back, buttock and thigh pain, which the etiology of which has been difficult to flush out. I decided to watch him engage with physical therapy to see if he is able to ambulate stand. The patient lying in bed in a supine position, has absolutely no pain, but when he attempts to rise up and sit in a vertical position in bed, his pain is intense. He points to the right buttock and back, and he is unable to sit in a vertical position; therefore, he has to lay back down to relieve his discomfort. OBJECTIVE: VITAL SIGNS: Temperature is 98.1, pulse 68, respiratory rate 12 and nonlabored, O2 saturation is 98% on room air, and blood pressure 139/75. GENERAL: He is alert, oriented, and appropriate response with examiner. Tenderness is elicited with palpation in the right SI region posteriorly. The patient can sit up vertically, but complains bitterly of pain in his back, buttock, and thigh with sitting up. Therefore, he was laid down and examined in the supine position. I can shuck his right hip and feel about a 4 mm distal shuck, which is non-provocative and non-concordant. Range of motion is mildly provocative with flexion, but internal-external rotation in the extended position is not. The patient is neurovascularly intact in the right lower extremity. His incision is clean. There is no erythema around the hip. IMPRESSION: Right buttock and thigh pain, etiology unclear. Hip aspirate essentially is negative, but clinically the patient still has right-sided thigh pain and buttock pain. His hardware does not appear grossly loosened on radiograph and the onset is suggestive more of an infectious process, but workup has failed to yield a corollary regarding his hip. Therefore, we will obtain a bone scan to see if he may have something else going on such as an insufficiency fracture or impending fracture. Follow up tomorrow. After bone scan, I believe Neurosurgery will re-evaluate the patient. Job ID: [id number]
--- NOTE | 2018-11-01 12:28 | PRG ---
DATE OF SERVICE: 11/01/2018 SUBJECTIVE: Vicente is an 88-year-old white male, we have continuing to see him on consult for right-sided hip and buttock pain. His pain has gotten substantially better with empiric antibiotic treatment for a suspected osteomyelitis of the lumbar spine. Our evaluation for hip generated discomfort has not had a strong yield to this point. Therefore, we have deferred to Neuro and Infectious Disease for therapeutic decision making. Today, he is in a much better mood. His pain is better. OBJECTIVE: VITAL SIGNS: Temperature 97.6, pulse 66, respiratory rate 16 and nonlabored, O2 saturations 98% on room air, and blood pressure 133/73. GENERAL: He is alert and oriented to person, place, time, and situation, grossly nonfocal. EXTREMITIES: Visual inspection of the right lower extremity, I can internally and externally rotate and range the femur and hip without any provocative for concordant pain at this time. He is neurovascularly intact in both lower extremities and I can shuck his hip 3 to 5 mm with good relocation clunk. IMPRESSION: Right-sided lumbar mediated radiculitis and lumbosacral pain. PLAN: 1. Continue current care. We will re-evaluate over the weekend and consider signing off if the patient continues to improve dramatically. 2. Therapy should attempt to walk the patient. Job ID: [id number]
[2018-11-01] MEDS ORDERED: Amlodipine 5 MG TAB PO SCH (12:30)
--- NOTE | 2018-11-01 12:50 | PRG ---
DATE OF SERVICE: 11/01/2018 SUBJECTIVE: The patient is feeling well. He has been able to get up and around a little bit more. Continues to work with physical therapy. Generally happy with his progress to this point, although he knows it can be challenging to go through 6 weeks of the therapy. He states that he believes he takes some type of blood pressure medication at home. He does not know what it is. On reviewing his pharmacy report, it does not appear that he has received any prescriptions for antihypertensives and I think maybe talking about the sotalol. OBJECTIVE: VITAL SIGNS: Temperature is 99.1, pulse 63, respirations 16, O2 saturation 97% on room air, and blood pressure 152/79 up to 161/92. GENERAL APPEARANCE: Age-appropriate male, in no distress. He is awake, alert, oriented, pleasant, and cooperative. HEART: Regular rate and rhythm. No murmurs, gallops, or rubs. LUNGS: Clear to auscultation bilaterally. Good chest wall expansion and air exchange. ABDOMEN: Soft, nontender, and nondistended. Positive bowel sounds. No masses. No organomegaly. EXTREMITIES: No cyanosis, clubbing, or edema. IMPRESSION AND PLAN: 1. L4-L5 diskitis/osteomyelitis. The patient has a PICC line in place. We will continue on meropenem and vancomycin until the end of November, planning on placement at a intermediate facility, where he can continue to work on improving his mobility. We should continue to improve as the infection ultimately resolves. 2. Right hip osteoarthrosis. Following history of the surgery there, the patient has had an imaging and bone scan, which do not show any significant pathology with the hip or other areas of osteomyelitis. Ortho following. 3. Elevated blood pressure. It does not appear the patient has been on antihypertensives in the past. His pulse remains in the 60s. We will avoid beta-blockers and give him some amlodipine. 4. History of atrial fibrillation. Continue with the sotalol and back on the Eliquis now. 5. Lumbar radiculopathy likely secondary to the osteomyelitis/diskitis. We will therefore discontinue the steroids. 6. History of coronary artery disease, stable. 7. History of peripheral vascular disease, stable. 8. History of chronic normocytic anemia. 9. We will repeat labs given the fact that he has been on the steroids. Job ID: [id number]
[2018-11-01 13:33] LABS: #Lymphocytes 1.5 thou/uL (1.20-3.40); #Monocytes 1.1 thou/uL (0.11-0.59); #Neutrophils 8.2 thou/uL (1.40-6.50); %Eosinophils 0.4 % (0.0-10.0); %Lymphocytes 14.2 % (21.0-51.0); %Monocytes 10.1 % (0.0-10.0); %Neutrophils 75.3 % (42.0-75.0); Hemoglobin 11.9 g/dL (14.0-18.0); Mean Corpuscular HGB CONC 33.8 g/dL (32.0-36.0); Mean Corpuscular Hemoglobin 32.8 pg (27.0-31.0); Mean Platelet Volume 6.8 fL (7.4-10.4); Platelet Count 286 thou/uL (130-400); RBC Distribution Width 13.4 % (11.5-14.5); Red Blood Cell (RBC) Count 3.64 mill/uL (4.70-6.10); White Blood Cell (WBC) Count 10.8 thou/uL (4.8-10.8)
[2018-11-01 13:57] LABS: Anion Gap 13 mmol/L (10-20); BUN (Urea Nitrogen) 27 mg/dL (8.4-25.7); Calc. Creatinine Clearance 72 mL/min (70-130); Calcium 8.6 mg/dL (7.8-10.44); Carbon Dioxide 24 mmol/L (23-31); Chloride 105 mmol/L (98-107); Estimated GFR-MDRD 82; Glucose 136 mg/dL (83-110); Potassium 4.2 mmol/L (3.5-5.1); Sodium 138 mmol/L (136-145)
[2018-11-01] MEDS: Ezetimibe 10 MG TAB PO SCH (20:40)
[2018-11-01] MEDS: Melatonin 3 MG TAB PO SCH (20:40)
[2018-11-01] MEDS: Saccharomyces boulardii 250 MG CAP PO SCH (20:42)
[2018-11-01] MEDS: HYDROcodone/Acetaminophen 5/325 mg Tablet PO PRN (20:52)
[2018-11-02] MEDS: Piperacillin/Tazobactam 4.5 GM in Sodium Chloride 0.9% 100 ML IVPB SCH ×3 (05:26→21:43)
[2018-11-02] MEDS: Mometasone/Formoterol 120 PUFF INHALER INH SCH ×2 (06:48→18:04)
[2018-11-02 08:36] LABS: Vancomycin, Trough 20.7 ug/mL
[2018-11-02] MEDS ORDERED: Amlodipine 5 MG TAB PO SCH ×2 (09:00→12:45)
[2018-11-02] MEDS: Vancomycin HCl 1 GM in Premix Bag 1 BAG IVPB SCH ×2 (09:17→20:48)
[2018-11-02] MEDS: Tamsulosin HCl 0.4 MG CAP PO SCH (09:19)
[2018-11-02] MEDS: Gabapentin 100 MG CAP PO SCH ×3 (09:19→20:45)
[2018-11-02] MEDS: Sotalol HCl 80 MG TAB PO SCH ×2 (09:20→20:43)
[2018-11-02] MEDS: cycloSPORINE 0.05% Ophthalmic Droperette EA EYE SCH ×2 (09:21→20:48)
[2018-11-02] MEDS: Saccharomyces boulardii 250 MG CAP PO SCH ×2 (09:21→20:45)
[2018-11-02] MEDS: Polyethylene Glycol 3350 17 GM Packet PO SCH (09:21)
[2018-11-02] MEDS: Apixaban 5 MG TAB PO SCH ×2 (09:21→20:45)
[2018-11-02] MEDS: Famotidine 20 MG TAB PO SCH ×2 (09:21→20:44)
[2018-11-02] MEDS: Docusate 100 MG CAP PO SCH ×2 (09:22→20:46)
--- NOTE | 2018-11-02 10:05 | PRG ---
DATE OF SERVICE: 11/02/2018 SUBJECTIVE: Vicente is an 88-year-old white male. We are continuing to follow him for right-sided hip, groin, and buttock pain. At this time, current working diagnosis is in his lumbar spine, probable osteomyelitis is responsible for his radiculopathy. His pain has improved significantly with empiric antibiotics. I have examined him serially for 3 days now and his hip exam is not changed. OBJECTIVE: On exam, I can shuck to about 2-3 mm with good relocation clunk. Range of motion is adequate with flexion, extension, internal and external rotation and is non-provocative at this point. IMPRESSION: 1. Lumbar osteomyelitis with radiculitis. 2. Currently stable right hip prosthesis, negative bone scan and negative hip aspirate, no growth at 3 days. Negative blood cultures, no growth at 48 hours. PLAN: Continue current care. We will re-consult as needed for now. We will follow from the distance. Job ID: [id number]
--- NOTE | 2018-11-02 11:44 | PRG ---
DATE OF SERVICE: 11/02/2018 SUBJECTIVE: The patient is doing well, has no complaints. He says he feels great long as he is lying down. He was able to get up on the side of the bed yesterday, tried to stand a little, but had some pain with that. OBJECTIVE: VITAL SIGNS: Temperature 97.5 pulse 62, respirations 20, O2 sat 99% on room air, and blood pressure 164/73. GENERAL APPEARANCE: Age-appropriate male, in no distress. Awake, alert, oriented, pleasant, cooperative. HEART: Regular rate and rhythm without murmurs, gallops, or rubs. LUNGS: Clear to auscultation bilaterally. ABDOMEN: Soft, nontender, and nondistended. Positive bowel sounds. No masses. No organomegaly. EXTREMITIES: The patient is moving that right lower extremity pretty freely without any significant pain. Has normal sensation. ASSESSMENT AND PLAN: 1. Lumbar diskitis/osteomyelitis. The patient has PICC line in place. He will be on Merrem and vancomycin until the end of November. Anticipate moving to to finish that out likely tomorrow. 2. Right hip osteoarthrosis appears to not be a significant factor at this point. 3. Hypertension. We will increase his blood pressure medicine to amlodipine 5 mg p.o. daily. This is a new issue for the patient. 4. History of atrial fibrillation. Continue sotalol and Eliquis. Now, there are no further procedures indicated. 5. Lumbar radiculopathy secondary to the osteomyelitis/diskitis. Continue to work with physical therapy. 6. History of coronary artery disease, stable. 7. History of peripheral vascular disease, asymptomatic and stable. 8. Chronic normocytic anemia. Job ID: [id number]
[2018-11-02] MEDS: Melatonin 3 MG TAB PO SCH (20:44)
[2018-11-02] MEDS: Ezetimibe 10 MG TAB PO SCH (20:44)
[2018-11-02] MEDS: HYDROcodone/Acetaminophen 5/325 mg Tablet PO PRN (20:50)
[2018-11-03] MEDS: Piperacillin/Tazobactam 4.5 GM in Sodium Chloride 0.9% 100 ML IVPB SCH ×3 (06:26→22:40)
[2018-11-03] MEDS: Mometasone/Formoterol 120 PUFF INHALER INH SCH ×2 (08:04→18:44)
[2018-11-03] MEDS: Apixaban 5 MG TAB PO SCH ×2 (08:29→20:39)
[2018-11-03] MEDS: Sotalol HCl 80 MG TAB PO SCH ×2 (08:29→20:40)
[2018-11-03] MEDS: Saccharomyces boulardii 250 MG CAP PO SCH ×2 (08:31→20:41)
[2018-11-03] MEDS: Tamsulosin HCl 0.4 MG CAP PO SCH (08:31)
[2018-11-03] MEDS: Gabapentin 100 MG CAP PO SCH ×3 (08:31→20:40)
[2018-11-03] MEDS: Docusate 100 MG CAP PO SCH ×2 (08:32→19:26)
[2018-11-03] MEDS: Amlodipine 5 MG TAB PO SCH (08:32)
[2018-11-03] MEDS: Polyethylene Glycol 3350 17 GM Packet PO SCH (08:32)
[2018-11-03] MEDS: Famotidine 20 MG TAB PO SCH ×2 (08:32→20:40)
[2018-11-03] MEDS: cycloSPORINE 0.05% Ophthalmic Droperette EA EYE SCH ×2 (08:33→22:37)
[2018-11-03] MEDS: Vancomycin HCl 1 GM in Premix Bag 1 BAG IVPB SCH (08:38)
[2018-11-03 08:44] LABS: Vancomycin, Trough 23.6 ug/mL
--- NOTE | 2018-11-03 09:01 | PDOC.PN ---
- Subjective Encounter Start Date: 11/03/18 Encounter Start Time: 13:20 Subjective: Patient with improved back pain. Got up with PT today with less back -: pain but very weak in legs from being stuck in bed so long. No other -: complaints. - Objective Resuscitation Status - Order Detail: 10/28/18 17:10 Resuscitation Status Routine Resuscitation Status: FULL: Full Resuscitation MAR Reviewed: Yes Vital Signs & Weight: Vital Signs (12 hours) Temp Pulse Resp BP BP Pulse Ox 11/03/18 08:32 61 130/73 11/03/18 08:29 61 130/73 11/03/18 08:04 61 16 97 11/03/18 07:20 97.9 F 62 16 130/73 98 11/03/18 04:00 97.9 F 68 16 119/77 97 Weight Weight 185 lb I&O: 11/02/18 11/03/18 11/04/18 06:59 06:59 06:59 Intake Total 3049 2049 Balance 3049 2049 Result Diagrams: 11/01/18 13:23 11/01/18 13:23 Phys Exam - Physical Examination Constitutional: NAD HEENT: moist MMs Respiratory: no wheezing, no rales, no rhonchi Cardiovascular: RRR, no significant murmur Gastrointestinal: soft, non-tender, positive bowel sounds Neurological: non-focal Psychiatric: normal affect, A&O x 3 Dx/Plan (1) Lumbar discitis Code(s): M46.46 - DISCITIS, UNSPECIFIED, LUMBAR REGION Status: Acute Comment : with osteomyelitis and lumbar radiculopathy, needs IV Meropenem and Vancomycin until December 21, case management arranging SNF placement (2) Localized osteoarthrosis of right hip Code(s): M16.11 - UNILATERAL PRIMARY OSTEOARTHRITIS, RIGHT HIP Status: Acute (3) Hypertension Code(s): I10 - ESSENTIAL (PRIMARY) HYPERTENSION Status: Chronic (4) Atrial fibrillation Code(s): I48.91 - UNSPECIFIED ATRIAL FIBRILLATION Status: Chronic (5) CAD (coronary artery disease) Code(s): I25.10 - ATHSCL HEART DISEASE OF [place] CORONARY ARTERY W/O ANG PCTRS Status: Chronic (6) PVD (peripheral vascular disease) Code(s): I73.9 - PERIPHERAL VASCULAR DISEASE, UNSPECIFIED Status: Chronic - Plan cont current plan of care, continue antibiotics, PT/OT arranging SNF * . - Discharge Day Encounter end time: 13:30
[2018-11-03] MEDS: HYDROcodone/Acetaminophen 5/325 mg Tablet PO PRN (09:05)
--- NOTE | 2018-11-03 14:09 | PRG ---
DATE OF SERVICE: 11/03/2018 The patient was seen and examined. SUBJECTIVE: The patient is an 88-year-old man with intractable back and leg pain. He has been evaluated by me in the past several years ago for his lumbar disease, and given his age and comorbidities as well as diffuse degenerative findings, no surgery was indicated. He had been doing reasonably well until 6 weeks ago when he developed signs and symptoms of urinary tract infection. The patient has a history of recurring urinary tract infections. Approximately, 4 weeks prior to admission, he was treated for urinary tract infection. Three weeks prior to admission, he developed spontaneous agonizing back and right hip region pain. This became increasingly severe, ultimately prompting emergency room evaluation and then rehab admission. We were contacted from rehab and recommended CT myelography for further investigation. This was difficult because of his Eliquis and no myelogram was performed. He was then ultimately transferred to the hospital for further workup. Hospital imaging has included CT of the pelvis and nuclear medicine bone scan, which were suggestive of possible L4-L5 erosive process particularly in comparison to previous radiographs from earlier in the year. He cannot get a CT myelogram because the radiologist felt it was contraindicated with the concern of infection. We cannot get an MRI scan due to pacemaker. He has been evaluated by Orthopedics, who did an aspiration of the hip, and he has not felt to likely have primary hip pathology. He has been found to have a normal white blood cell count, has not had any demonstrable bacteremia, but has had elevated sedimentation rate, and modestly elevated C-reactive protein. He was started on broad-spectrum IV antibiotics last week and clinically has had modest improvement initially. He had substantial improvement in his ability to mobilize, but there was some deterioration over the weekend. 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 It is difficult to prove this conclusively given the relatively modest laboratory findings and the inability to get definitive imaging. The imaging findings and the laboratory findings are suggestive enough that I agree with proceeding with the empiric IV antibiotics. There certainly are no surgical strategies at this point. Furthermore, I am encouraged by the response to empiric treatment at this stage. I visited with Mr. Moreno to discuss the situation and support these recommendations. No further neurosurgical recommendations at this time. Greater than 30 minutes of this evaluation was spent in review of films, [id number] consultation with the patient. Job ID: [id number]
[2018-11-03] MEDS: Vancomycin HCl 750 MG in Sodium Chloride 0.9% 250 ML 250 ML IVPB SCH (20:34)
[2018-11-03] MEDS: Ezetimibe 10 MG TAB PO SCH (20:40)
[2018-11-03] MEDS: Melatonin 3 MG TAB PO SCH (20:41)
[2018-11-04] MEDS: Piperacillin/Tazobactam 4.5 GM in Sodium Chloride 0.9% 100 ML IVPB SCH ×3 (06:24→22:33)
[2018-11-04] MEDS: Mometasone/Formoterol 120 PUFF INHALER INH SCH ×2 (07:27→18:31)
[2018-11-04] MEDS: Saccharomyces boulardii 250 MG CAP PO SCH ×2 (08:53→20:14)
[2018-11-04] MEDS: Sotalol HCl 80 MG TAB PO SCH ×2 (08:53→20:32)
[2018-11-04] MEDS: Tamsulosin HCl 0.4 MG CAP PO SCH (08:54)
[2018-11-04] MEDS: Gabapentin 100 MG CAP PO SCH ×3 (08:54→20:14)
[2018-11-04] MEDS: Apixaban 5 MG TAB PO SCH ×2 (08:55→20:14)
[2018-11-04] MEDS: Famotidine 20 MG TAB PO SCH ×2 (08:55→20:14)
[2018-11-04] MEDS: Amlodipine 5 MG TAB PO SCH (08:55)
[2018-11-04] MEDS: Vancomycin HCl 750 MG in Sodium Chloride 0.9% 250 ML 250 ML IVPB SCH ×2 (08:56→20:21)
[2018-11-04] MEDS: Docusate 100 MG CAP PO SCH ×2 (08:56→20:28)
[2018-11-04] MEDS: cycloSPORINE 0.05% Ophthalmic Droperette EA EYE SCH ×2 (08:56→20:30)
[2018-11-04] MEDS: Polyethylene Glycol 3350 17 GM Packet PO SCH (08:56)
--- NOTE | 2018-11-04 09:44 | PDOC.PN ---
- Subjective Encounter Start Date: 11/04/18 Encounter Start Time: 12:25 Subjective: Patient feeling much better. No pain in back. No radiation of pain. -: Able to get up with walker and take 11 steps today. Encouraged about -: progress. - Objective Resuscitation Status - Order Detail: 10/28/18 17:10 Resuscitation Status Routine Resuscitation Status: FULL: Full Resuscitation MAR Reviewed: Yes Vital Signs & Weight: Vital Signs (12 hours) Temp Pulse Resp BP BP Pulse Ox 11/04/18 08:55 66 130/69 11/04/18 08:54 98 11/04/18 08:53 66 130/69 11/04/18 07:34 98.1 F 66 16 130/69 98 11/04/18 07:27 64 16 96 11/04/18 04:12 98 F 68 14 107/72 98 11/04/18 00:00 97.5 F L 60 14 120/59 L 96 Weight Weight 185 lb I&O: 11/03/18 11/04/18 11/05/18 06:59 06:59 06:59 Intake Total 2049 1719 Balance 2049 172 Result Diagrams: 11/01/18 13:23 11/01/18 13:23 Phys Exam - Physical Examination Constitutional: NAD HEENT: moist MMs Respiratory: no wheezing, no rales, no rhonchi Cardiovascular: RRR, no significant murmur Gastrointestinal: soft, non-tender, positive bowel sounds Neurological: non-focal, moves all 4 limbs Psychiatric: normal affect, A&O x 3 Dx/Plan (1) Lumbar discitis Code(s): M46.46 - DISCITIS, UNSPECIFIED, LUMBAR REGION Status: Acute Comment : with osteomyelitis and lumbar radiculopathy, needs IV Meropenem and Vancomycin until December 21, case management arranging SNF placement (2) Localized osteoarthrosis of right hip Code(s): M16.11 - UNILATERAL PRIMARY OSTEOARTHRITIS, RIGHT HIP Status: Acute (3) Hypertension Code(s): I10 - ESSENTIAL (PRIMARY) HYPERTENSION Status: Chronic (4) Atrial fibrillation Code(s): I48.91 - UNSPECIFIED ATRIAL FIBRILLATION Status: Chronic (5) CAD (coronary artery disease) Code(s): I25.10 - ATHSCL HEART DISEASE OF [place] CORONARY ARTERY W/O ANG PCTRS Status: Chronic (6) PVD (peripheral vascular disease) Code(s): I73.9 - PERIPHERAL VASCULAR DISEASE, UNSPECIFIED Status: Chronic - Plan cont current plan of care, continue antibiotics, PT/OT, DVT proph w/SCDs Awaiting approval to go to [facility] * . - Discharge Day Encounter end time: 12:35
[2018-11-04] MEDS: Ezetimibe 10 MG TAB PO SCH (20:14)
[2018-11-04] MEDS: Melatonin 3 MG TAB PO SCH (20:14)
[2018-11-04] MEDS: HYDROcodone/Acetaminophen 5/325 mg Tablet PO PRN (20:23)
[2018-11-05] MEDS: Piperacillin/Tazobactam 4.5 GM in Sodium Chloride 0.9% 100 ML IVPB SCH ×3 (06:28→21:20)
[2018-11-05 06:50] LABS: #Eosinphils 0.2 thou/uL (0.0-0.7); #Lymphocytes 1.7 thou/uL (1.20-3.40); #Neutrophils 5.8 thou/uL (1.40-6.50); %Basophils 0.1 % (0.0-1.0); %Eosinophils 1.8 % (0.0-10.0); %Lymphocytes 19.9 % (21.0-51.0); %Monocytes 11.2 % (0.0-10.0); %Neutrophils 66.9 % (42.0-75.0); Mean Corpuscular HGB CONC 33.1 g/dL (32.0-36.0); Mean Corpuscular Hemoglobin 32.6 pg (27.0-31.0); Mean Corpuscular Volume 98.4 fL (78.0-98.0); Mean Platelet Volume 6.7 fL (7.4-10.4); Platelet Count 249 thou/uL (130-400); RBC Distribution Width 13.6 % (11.5-14.5); Red Blood Cell (RBC) Count 3.37 mill/uL (4.70-6.10); White Blood Cell (WBC) Count 8.6 thou/uL (4.8-10.8)
[2018-11-05 07:11] LABS: Anion Gap 10 mmol/L (10-20); BUN (Urea Nitrogen) 26 mg/dL (8.4-25.7); Calc. Creatinine Clearance 68 mL/min (70-130); Calcium 8.5 mg/dL (7.8-10.44); Carbon Dioxide 27 mmol/L (23-31); Chloride 102 mmol/L (98-107); Estimated GFR-MDRD 77; Glucose 96 mg/dL (83-110); Potassium 4.2 mmol/L (3.5-5.1); Sodium 135 mmol/L (136-145)
[2018-11-05] MEDS: Mometasone/Formoterol 120 PUFF INHALER INH SCH ×2 (07:23→18:33)
[2018-11-05] MEDS: Tamsulosin HCl 0.4 MG CAP PO SCH (08:51)
[2018-11-05] MEDS: Saccharomyces boulardii 250 MG CAP PO SCH ×2 (08:52→21:23)
[2018-11-05] MEDS: Famotidine 20 MG TAB PO SCH ×2 (08:52→21:23)
[2018-11-05] MEDS: Sotalol HCl 80 MG TAB PO SCH ×2 (08:52→21:21)
[2018-11-05] MEDS: Amlodipine 5 MG TAB PO SCH (08:53)
[2018-11-05] MEDS: Polyethylene Glycol 3350 17 GM Packet PO SCH (08:53)
[2018-11-05] MEDS: Docusate 100 MG CAP PO SCH ×2 (08:53→21:24)
[2018-11-05] MEDS: Gabapentin 100 MG CAP PO SCH ×3 (08:53→21:22)
[2018-11-05] MEDS: Apixaban 5 MG TAB PO SCH ×2 (08:53→21:23)
[2018-11-05] MEDS: cycloSPORINE 0.05% Ophthalmic Droperette EA EYE SCH ×2 (08:53→21:33)
[2018-11-05] MEDS: Vancomycin HCl 750 MG in Sodium Chloride 0.9% 250 ML 250 ML IVPB SCH ×2 (08:58→21:35)
--- NOTE | 2018-11-05 09:15 | PDOC.PN ---
- Subjective Encounter Start Date: 11/05/18 Encounter Start Time: 13:20 Subjective: Patient feeling better. Back pain continues to improve. Ambulated to -: hallway today and back. - Objective Resuscitation Status - Order Detail: 10/28/18 17:10 Resuscitation Status Routine Resuscitation Status: FULL: Full Resuscitation MAR Reviewed: Yes Vital Signs & Weight: Vital Signs (12 hours) Temp Pulse Resp BP BP Pulse Ox 11/05/18 08:53 69 138/82 11/05/18 08:52 69 138/82 11/05/18 07:35 98.1 F 69 18 138/82 97 11/05/18 04:29 98.1 F 65 20 115/65 98 Weight Weight 185 lb I&O: 11/04/18 11/05/18 11/06/18 06:59 06:59 06:59 Intake Total 1720 1680 Balance 1720 1680 Result Diagrams: 11/05/18 06:25 11/05/18 06:25 Phys Exam - Physical Examination Constitutional: NAD HEENT: moist MMs Respiratory: no wheezing, no rales, no rhonchi, clear to auscultation bilateral Cardiovascular: RRR, no significant murmur Gastrointestinal: soft, non-tender, positive bowel sounds Neurological: non-focal, moves all 4 limbs Psychiatric: normal affect, A&O x 3 Dx/Plan (1) Lumbar discitis Code(s): M46.46 - DISCITIS, UNSPECIFIED, LUMBAR REGION Status: Acute Comment : with osteomyelitis and lumbar radiculopathy, needs IV Meropenem and Vancomycin until December 21, case management arranging SNF placement (2) Localized osteoarthrosis of right hip Code(s): M16.11 - UNILATERAL PRIMARY OSTEOARTHRITIS, RIGHT HIP Status: Acute (3) Hypertension Code(s): I10 - ESSENTIAL (PRIMARY) HYPERTENSION Status: Chronic (4) Atrial fibrillation Code(s): I48.91 - UNSPECIFIED ATRIAL FIBRILLATION Status: Chronic Comment: on Bette (5) CAD (coronary artery disease) Code(s): I25.10 - ATHSCL HEART DISEASE OF [place] CORONARY ARTERY W/O ANG PCTRS Status: Chronic (6) PVD (peripheral vascular disease) Code(s): I73.9 - PERIPHERAL VASCULAR DISEASE, UNSPECIFIED Status: Chronic - Plan cont current plan of care, continue antibiotics, PT/OT, DVT proph w/SCDs accepted to [facility], will send tomorrow morning * . - Discharge Day Encounter end time: 13:40
[2018-11-05 09:30] LABS: Vancomycin, Trough 20.1 ug/mL
[2018-11-05] MEDS: Ezetimibe 10 MG TAB PO SCH (21:21)
[2018-11-05] MEDS: HYDROcodone/Acetaminophen 5/325 mg Tablet PO PRN (21:23)
[2018-11-05] MEDS: Melatonin 3 MG TAB PO SCH (21:24)
[2018-11-06] MEDS: Piperacillin/Tazobactam 4.5 GM in Sodium Chloride 0.9% 100 ML IVPB SCH (05:44)
[2018-11-06] MEDS: Mometasone/Formoterol 120 PUFF INHALER INH SCH (06:23)
[2018-11-06] MEDS: Vancomycin HCl 750 MG in Sodium Chloride 0.9% 250 ML 250 ML IVPB SCH (08:07)
[2018-11-06] MEDS: Amlodipine 5 MG TAB PO SCH (08:08)
[2018-11-06] MEDS: Tamsulosin HCl 0.4 MG CAP PO SCH (08:08)
[2018-11-06] MEDS: Apixaban 5 MG TAB PO SCH (08:08)
[2018-11-06] MEDS: Saccharomyces boulardii 250 MG CAP PO SCH (08:08)
[2018-11-06] MEDS: Gabapentin 100 MG CAP PO SCH (08:08)
[2018-11-06] MEDS: Famotidine 20 MG TAB PO SCH (08:09)
[2018-11-06] MEDS: Polyethylene Glycol 3350 17 GM Packet PO SCH (08:09)
[2018-11-06] MEDS: cycloSPORINE 0.05% Ophthalmic Droperette EA EYE SCH (08:09)
[2018-11-06] MEDS: Docusate 100 MG CAP PO SCH (08:09)
[2018-11-06 08:40] LABS: Vancomycin, Trough 19.8 ug/mL
--- NOTE | 2018-11-06 09:07 | PDOC.PN ---
- Subjective Encounter Start Date: 11/06/18 - Objective Resuscitation Status - Order Detail: 10/28/18 17:10 Resuscitation Status Routine Resuscitation Status: FULL: Full Resuscitation MAR Reviewed: Yes Vital Signs & Weight: Vital Signs (12 hours) Temp Pulse Resp BP BP Pulse Ox 11/06/18 08:08 87 107/75 11/06/18 07:41 98.1 F 87 18 107/75 98 11/06/18 06:23 66 16 99 11/06/18 04:00 97.6 F 70 20 114/70 96 11/06/18 00:00 97.8 F 67 20 111/67 95 11/05/18 21:21 80 138/68 Weight Admit Weight 185 lb Weight 185 lb I&O: 11/05/18 11/06/18 11/07/18 06:59 06:59 06:59 Intake Total 1680 2004 900 Balance 1680 2004 900 Result Diagrams: 11/05/18 06:25 11/05/18 06:25 Dx/Plan (1) Lumbar discitis Code(s): M46.46 - DISCITIS, UNSPECIFIED, LUMBAR REGION Status: Acute Comment : with osteomyelitis and lumbar radiculopathy, needs IV Meropenem and Vancomycin until December 21, case management arranging SNF placement (2) Localized osteoarthrosis of right hip Code(s): M16.11 - UNILATERAL PRIMARY OSTEOARTHRITIS, RIGHT HIP Status: Acute (3) Hypertension Code(s): I10 - ESSENTIAL (PRIMARY) HYPERTENSION Status: Chronic (4) Atrial fibrillation Code(s): I48.91 - UNSPECIFIED ATRIAL FIBRILLATION Status: Chronic Comment: on Bette (5) CAD (coronary artery disease) Code(s): I25.10 - ATHSCL HEART DISEASE OF [place] CORONARY ARTERY W/O ANG PCTRS Status: Chronic (6) PVD (peripheral vascular disease) Code(s): I73.9 - PERIPHERAL VASCULAR DISEASE, UNSPECIFIED Status: Chronic - Plan cont current plan of care D/C to [facility] today * .
[2018-11-06 11:25] VITALS: TEMP 97.8
[2018-11-06] MEDS: Sotalol HCl 80 MG TAB PO SCH (12:18)
[2018-11-06 12:19] VITALS: BP 149/98
--- NOTE | 2018-11-07 02:27 | DIS ---
DATE OF ADMISSION: 10/28/2018 DATE OF DISCHARGE: 11/06/2018 PRIMARY CARE PHYSICIAN: Joaquin Benavidez MD REASON FOR ADMISSION: Intractable lumbar and right hip pain with lumbar radiculopathy. DIAGNOSES AT DISCHARGE: 1. Lumbar diskitis with radicular pain. 2. Localized osteoarthritis of the right hip. 3. Hypertension. 4. Atrial fibrillation, on chronic anticoagulation. 5. Coronary artery disease. 6. Peripheral vascular disease. PROCEDURES: 1. CT of the pelvis with contrast showing some abnormal erosions in the anterior inferior L4 and anterior superior L5 endplates on the right with mild adjacent soft tissue edema progressing from an examination last month previous, highly concerning for diskitis or osteomyelitis of the right interior L4-L5 interspace with new osseous erosions and fat stranding. 2. Right total hip prosthetic joint fluoroscopic guided aspiration with successful retrieval of 4 mL of yellow slightly sanguinous synovial fluid. 3. Three-phase bone scan showing abnormal area of radiotracer accumulation in the L4-L5 intervertebral space with no evidence to suggest right hip prosthetic loosening. 4. Peripheral insertion of PICC line in the right upper extremity basilic vein by ultrasound guidance. 5. X-ray myelogram of the lumbar spine, actually the exam was not performed due to high risk of intrathecal seeding of infection. CONSULTATIONS: 1. Orthopedic Surgery, Jimbo Sims for Dr. Julio Cesar Pope. 2. Infectious Disease, Dr. Kee. 3. Neurosurgery, Dr. Calhoun. SUMMARY OF HOSPITAL COURSE: This is an 88-year-old white male, who presented to the emergency department with complaints of right hip and lower back pain for approximately a week in duration. He was unable to sit upright or stand without severe pain. He was thought to be an appropriate candidate for inpatient rehabilitation, was transferred to [facility] inpatient rehab where he was receiving his right hip and lower back, pain increased. He is unable to participate in rehab. As he was having worsening symptoms, he was referred back to the hospital for admission to hospitalist service and neurosurgical and orthopedic evaluation. The patient had imaging as above with concern for infection. There was evaluation of his right hip, which was found to not be the source of the issue rather was his back with radicular pain. Dr. Kee was consulted. The patient was put on broad-spectrum antibiotics. He had blood and right hip fluid cultures all done which were negative for any growth. He had marked improvement in his back pain on the broad-spectrum antibiotics and was eventually able to start participating with physical therapy. Dr. Kee recommended the patient receive long-term IV antibiotic therapy for the infectious diskitis. The patient had a PICC line placed and he has been accepted to the [facility] for IV administration of antibiotics until December 21. DISCHARGE MANAGEMENT: Location: Discharged to residential facility to [facility]. Activity: As tolerated. Diet: Regular diet. Therapy: Occupational and physical therapy. Followup: Follow up with Dr. Chowdhury, Dr. Kee and as indicated. DISCHARGE MEDICATIONS: 1. Amlodipine 5 mg daily. 2. Eliquis 5 mg twice a day. 3. Flexeril 5 mg twice a day as needed. 4. Colace 100 mg twice a day. 5. Zetia 10 mg at night. 6. Famotidine 20 mg twice a day. 7. Breo Ellipta 200-25 mcg one inhalation daily. 8. Gabapentin 200 mg 3 times a day. 9. Hydrocodone 5/325, 1 to 2 tablets every 6 hours as needed for pain. 10. Melatonin 3 mg at night. 11. Zofran as needed. 12. Protonix 40 mg daily. 13. Zosyn 4.5 g IV piggyback every 8 hours until December 21. 14. MiraLAX 17 g daily. 15. Ranexa 1000 mg twice a day. 16. Restasis ophthalmic drops one drop in each eye twice a day. 17. Florastor 250 mg twice a day. 18. Senokot-S 2 tablets twice a day or as needed. 19. Sotalol 120 mg twice a day. 20. Tamsulosin 0.8 mg daily. 21. Vancomycin 750 mg IV piggyback every 12 hours until December 21. The patient is also to get CBC, CRP and CMP done weekly and a vancomycin trough done twice a week and these results are to be faxed over to Dr. Kee' office. Arranging the details of this discharge took 35 minutes. Job ID: [id number]
== END 2018-11-06 13:46 | DRG 552 ==
LOC: SURG A 14:44
PROVIDERS: ADMIT Family Medicine; ATTEND Family Medicine
PROC: 0S9 Lower Joints, Drainage (ICD-10-PCS; principal; 2018-10-29)
PROC: 02HV33Z Insertion of Infusion Device into Superior Vena Cava, Percutaneous Approach (ICD-10-PCS; 2018-10-31)
DX: M46.46 Discitis, unspecified, lumbar region (principal); M46.26 Osteomyelitis of vertebra, lumbar region; M16.11 Unilateral primary osteoarthritis, right hip; M54.16 Radiculopathy, lumbar region; D64.9 Anemia, unspecified; I10 Essential (primary) hypertension; I25.10 Atherosclerotic heart disease of native coronary artery without angina pectoris; I73.9 Peripheral vascular disease, unspecified; G47.33 Obstructive sleep apnea (adult) (pediatric); Z95.0 Presence of cardiac pacemaker; Z95.1 Presence of aortocoronary bypass graft; Z95.5 Presence of coronary angioplasty implant and graft; Z79.01 Long term (current) use of anticoagulants; Z79.899 Other long term (current) drug therapy; Z88.8 Allergy status to other drugs, medicaments and biological substances
CPT/HCPCS: 20610; 36415; 36569; 72100; 72193; 77002; 78315; 80048; 80202; 85007; 85025; 85027; 85652; 86140; 87040; 87070; 87205; A9503; J2543; J3370; J3490; J7050; J7512; L0639; Q9966

== ENCOUNTER 2018-11-22 07:47 | Inpatient (IN) | payer MEDICARE ==
[2018-11-22] MEDS ORDERED: Aspirin Chewable 81 MG TAB ONE (08:36)
[2018-11-22 08:47] LABS: #Eosinphils 0.7 thou/uL (0.0-0.7); #Lymphocytes 1.7 thou/uL (1.20-3.40); #Monocytes 0.9 thou/uL (0.11-0.59); #Neutrophils 3.9 thou/uL (1.40-6.50); %Basophils 0.4 % (0.0-1.0); %Eosinophils 9.7 % (0.0-10.0); %Lymphocytes 23.2 % (21.0-51.0); %Monocytes 12.2 % (0.0-10.0); %Neutrophils 54.4 % (42.0-75.0); Hemoglobin 10.2 g/dL (14.0-18.0); Mean Corpuscular HGB CONC 32.1 g/dL (32.0-36.0); Mean Corpuscular Hemoglobin 32.5 pg (27.0-31.0); Mean Platelet Volume 6.8 fL (7.4-10.4); Platelet Count 233 thou/uL (130-400); RBC Distribution Width 13.6 % (11.5-14.5); Red Blood Cell (RBC) Count 3.13 mill/uL (4.70-6.10); White Blood Cell (WBC) Count 7.1 thou/uL (4.8-10.8)
[2018-11-22 09:00] LABS: ALT (SGPT) 11 U/L (8-55); AST (SGOT) 9 U/L (5-34); Albumin 3.4 g/dL (3.4-4.8); Alkaline Phosphatase 71 U/L (40-150); Anion Gap 13 mmol/L (10-20); BUN (Urea Nitrogen) 15 mg/dL (8.4-25.7); Bilirubin, Total 0.7 mg/dL (0.2-1.2); Calc. Creatinine Clearance 0 mL/min (70-130); Calcium 8.6 mg/dL (7.8-10.44); Carbon Dioxide 26 mmol/L (23-31); Chloride 102 mmol/L (98-107); Estimated GFR-MDRD 85; Globulin 2.5 g/dL (2.4-3.5); Glucose 109 mg/dL (83-110); Potassium 3.8 mmol/L (3.5-5.1); Protein, Total 5.9 g/dL (5.8-8.1); Sodium 137 mmol/L (136-145)
[2018-11-22] MEDS ORDERED: Furosemide 40 MG/4 ML VIAL ONE (09:18)
--- NOTE | 2018-11-22 09:57 | RAD ---
ONE VIEW CHEST: HISTORY: Dyspnea. COMPARISON: 11/18/2018. FINDINGS: There are sternotomy wires. Left-sided transvenous pacemaker has stable lead position. Stable right -sided PICC line. Cardiomegaly. Worsening opacification suggesting progression of edema with superimposed infection or aspiration. No pneumothorax. IMPRESSION: Worsening congestive heart failure. Superimposed infection or aspiration cannot be excluded. POS: OFF
--- NOTE | 2018-11-22 10:17 | HP ---
REASON FOR ADMISSION: [id number] congestive heart failure exacerbation. HISTORY OF PRESENT ILLNESS: An 88-year-old male, who has underlying history of coronary artery disease as well as history of heart block with pacemaker, who presented to emergency room with complaint of increasing shortness of breath. The patient currently lives at [facility], where he is getting IV antibiotic therapy for diskitis/osteomyelitis of L4-L5. The patient reports that with IV antibiotic therapy, he is feeling better. His last day of IV antibiotic therapy is December 21, 2018. The patient has chronic shortness of breath. He feels dyspnea on exertion. His exercise capacity is limited because of shortness of breath. The patient is following Dr. Beckman, who is his analysis manager and he was told that he has " stiff heart". He does not remember when he had last echocardiography done. He denies any chest pain or palpitation, but he does have increasing shortness of breath on exertion, orthopnea, and yesterday night, he had extremely bad night with shortness of breath. He was having difficulty breathing. He was not able to talk in full sentence. He did not have any nausea or vomiting. He did not have any constipation, diarrhea, melena, or hematochezia. He denies any abdominal pain. In the emergency room, the patient was hypertensive, mild respiratory distress. His chest x-ray showed pulmonary edema picture. He was given Lasix and after that, the patient felt better. His BNP is elevated. At this point, he is being admitted to the hospital for CHF exacerbation. PAST MEDICAL HISTORY: Coronary artery disease with history of stent x3 as well as CABG, obstructive sleep apnea; osteoarthritis, required hip arthroplasty; chronic low back pain with degenerative joint disease, history of diskitis/ osteomyelitis at L4-L5, on IV antibiotic therapy; history of scoliosis, require multiple lumbar spine surgery; history of heart block, required pacemaker; hypertension. Paroxysmal atrial fibrillation, and peripheral vascular disease. PAST SURGICAL HISTORY: Tonsillectomy, pacemaker placement, lumbar spine surgery , right total hip arthroplasty, CABG, and cardiac catheterization with stent placement. PAST PSYCHIATRIC HISTORY: Reviewed and negative. ALLERGIES: CAPTOPRIL, HYDROCHLOROTHIAZIDE, AND PRAVASTATIN. FAMILY HISTORY: No strong family history of premature coronary artery disease, stroke, or cancer. SOCIAL HISTORY: The patient is currently resident of [facility], where he is getting IV antibiotic therapy. He ambulates with a walker. He does not have any tobacco, alcohol, or illicit drug abuse. He is . His is present at bedside. REVIEW OF SYSTEMS: CONSTITUTIONAL: Negative for weight loss or gain, ability to conduct usual activities. SKIN: Negative for rash, itching. EYES: Negative for double vision, pain. ENT/MOUTH: Negative for nose bleeding, neck stiffness, pain, tenderness. CARDIOVASCULAR: Negative for palpitations, dyspnea on exertion, orthopnea. RESPIRATORY: Negative for shortness of breath, wheezing, cough, hemoptysis, fever or night sweats. GASTROINTESTINAL: Negative for poor appetite, abdominal pain, heartburn, nausea , vomiting, constipation, or diarrhea. GENITOURINARY: Negative for urgency, frequency, dysuria, nocturia. MUSCULOSKELETAL: Negative for pain, swelling. NEUROLOGIC/PSYCHIATRIC: Negative for anxiety, depression. ALLERGY/IMMUNOLOGIC: Negative for skin rash, bleeding tendency. Please see my HPI for pertinent positives and negatives. All other review of systems reviewed and negative except as mentioned in HPI. CURRENT HOME MEDICATION: 1. DuoNeb q.6 hourly p.r.n. 2. [place] 7.5, one tablet q.6 hourly p.r.n. 3. Protonix 40 mg daily. 4. Amlodipine 5 mg daily. 5. Flomax 0.8 mg daily. 6. Breo Ellipta one inhalation daily. 7. Zosyn 4.5 g IV q.6 hourly. 8. Eliquis 5 mg twice daily. 9. Zetia 10 mg daily. 10. Sotalol 120 mg twice daily. 11. Pepcid 20 mg twice daily. 12. Ranexa 1000 mg twice daily. 13. Vancomycin 750 mg IV q.12 hourly. 14. Gabapentin 200 mg three times daily. 15. Flexeril 5 mg t.i.d. p.r.n. EMERGENCY ROOM COURSE: The patient has received Lasix, DuoNeb therapy, and aspirin. PHYSICAL EXAMINATION: VITAL SIGNS: Currently, blood pressure 168/122, pulse 76, respiratory rate 23, temperature 98.0, and saturation 93% on room air. Weight 93.1 kg. GENERAL: The patient is currently alert, awake, and in no obvious acute distress. HEENT: Head; normocephalic and atraumatic. Eyes; pupils are round and reactive to light. Extraocular muscle intact. ENT; oropharynx within normal limits. Moist mucous membranes. No oral lesion. No pharyngeal erythema. No exudate. NECK: Supple. No JVD. No thyromegaly. No carotid bruit. LUNGS: Bibasilar rales. Coarse breath sounds noted. No wheeze. No rhonchi. No accessory muscles of respiration in use. CARDIAC: S1 and S2, irregular. PVCs noted on monitor. No gallop. No rub. ABDOMEN: Soft. Bowel sounds present. Nontender. Nondistended. No organomegaly. No mass. No suprapubic tenderness. BACK: Examination unremarkable. No CVA tenderness. EXTREMITIES: Upper extremity passive movement of all joints are normal. Bilateral lower extremity edema noted. The patient has a PICC line on the right upper extremity. NEUROLOGIC: Nonfocal examination. SIGNIFICANT LABORATORY DATA: EKG showing pacemaker rhythm, nonspecific ST-T changes. Chest x-ray consistent with pulmonary vascular congestion. BNP 549.7. BMP; sodium 137, potassium 3.8, chloride 102, carbon dioxide 26, anion gap 13, BUN 15, creatinine 0.85, glucose 109, calcium 8.6. LFT; protein 5.9, albumin 3.4, alkaline phosphatase 71, AST 9, and ALT 11. CBC; WBC 7.1, hemoglobin 10.2, platelet 233, MCV 101. Troponin 0.011. ASSESSMENT AND PLAN: 1. [id number] congestive heart failure exacerbation, suspecting diastolic heart failure. The patient has elevated BNP. He has history of dyspnea on exertion, orthopnea, and PND. He has elevated lower extremity edema and his clinical presentation as well as chest x-ray finding consistent with congestive heart failure. The patient will need to be hospitalized. He will require Lasix 40 mg IV b.i.d. We will obtain echocardiography to assess EF and other structural abnormality. We will check TSH, uric acid, magnesium as a part of heart failure workup. We will monitor clinical response. We will monitor daily weight, input and output chart and replace electrolytes accordingly. We are expecting the patient 's stay in hospital at least three days in hospital and subsequently, he will be discharged back to retirement unit. 2. History of recent diskitis on osteomyelitis of L4-L5. The patient is supposed to get IV antibiotic therapy, which we will continue while in hospital. He has PICC line in place. His last day of IV antibiotic therapy is December 21. We will continue vancomycin and Zosyn as prescribed. We will also provide probiotics. 3. Macrocytic anemia. We will continue with folic acid 1 mg p.o. daily and vitamin B12 1000 mcg p.o. daily. 4. Chronic obstructive pulmonary disease. We will continue DuoNeb q.6 hourly along with Breo Ellipta one inhalation daily. 5. Gastroesophageal reflux disease. We will continue Protonix 40 mg p.o. daily and Pepcid 20 mg p.o. b.i.d. 6. Benign enlargement of prostate. We will continue Flomax 0.8 mg p.o. daily. 7. Paroxysmal atrial fibrillation, currently rate is under control. Continue sotalol 120 mg twice daily and Eliquis 5 mg p.o. b.i.d. 8. Dyslipidemia. Continue Zetia 10 mg p.o. daily. 9. Coronary artery disease. Continue Ranexa 1000 mg twice daily. 10. Chronic low back pain. Continue gabapentin 200 mg p.o. t.i.d., Flexeril 5 mg t.i.d. p.r.n. and [place] p.r.n. basis. 11. DVT prophylaxis, the patient is already on Eliquis therapy. 12. GI prophylaxis, the patient is already on Protonix and Pepcid therapy. CODE STATUS: The patient is a full code. The patient's is surrogate decision maker. DISPOSITION PLAN: Based on clinical course, we are expecting the patient's stay in hospital for more than 2 midnights. Job ID: [id number] MTDD
[2018-11-22] MEDS ORDERED: Ondansetron PF 4 MG/2 ML Vial IVP PRN ×2 (11:15→11:36)
[2018-11-22] MEDS ORDERED: Ondansetron ODT 4 MG TAB SL PRN (11:15)
[2018-11-22] MEDS ORDERED: Acetaminophen 325 MG TAB PO PRN ×2 (11:15→11:36)
[2018-11-22] MEDS ORDERED: Loperamide HCl 2 MG CAP PO PRN (11:36)
[2018-11-22] MEDS ORDERED: Cyclobenzaprine 10 MG TAB PO PRN (11:36)
[2018-11-22] MEDS ORDERED: Zolpidem Tartrate 5 MG TAB PO PRN (11:36)
[2018-11-22] MEDS ORDERED: Bisacodyl 10 MG SUPP PR PRN (11:36)
[2018-11-22] MEDS ORDERED: Nitroglycerin 0.4 MG TAB (25 Tab Bottle) SL PRN (11:36)
[2018-11-22] MEDS ORDERED: Senokot S 8.6-50 MG TAB PO PRN ×2 (11:36)
[2018-11-22] MEDS ORDERED: Loratadine 10 MG TAB PO PRN (11:36)
[2018-11-22] MEDS ORDERED: Calcium Carbonate 500 MG ChewTAB PO PRN (11:36)
[2018-11-22] MEDS ORDERED: Diabetic Tussin 200 MG/10 ML UDCUP PO PRN (11:36)
[2018-11-22] MEDS ORDERED: Sodium Chloride 0.65% Nasal 44 ML BOT EA NARE PRN (11:36)
[2018-11-22] MEDS ORDERED: hydrALAZINE 20 MG/ML VIAL SLOW IVP PRN (11:36)
[2018-11-22] MEDS ORDERED: Ondansetron ODT 4 MG TAB PO PRN (11:36)
[2018-11-22 12:18] LABS: Bilirubin Negative (Negative); Blood, Urine Small (Negative); Clarity CLOUDY (Clear); Glucose, Urine (Dipstick) Negative (Negative); Leukocyte Small (Negative); Nitrite Negative (Negative); Protein, Urine (Dipstick) Negative (Neg-Trace); Specific Gravity, Urine 1.009 (1.002-1.036); Urobilinogen 0.2 mg/dL (0.2-1.0)
[2018-11-22 12:20] LABS: Bacteria/HPF None Seen HPF (None Seen); Hyaline Casts/LPF 0-3 HYALINE CAST LPF (0-3 Hyaline); Pathc Cast-AUWi Flag 0.27 (0-2.49); Squamous Epithelial 0-3 HPF (0-3)
[2018-11-22 12:28] VITALS: BMI 29.0
[2018-11-22 13:01] LABS: Troponin I 0.016 ng/mL (< 0.028)
[2018-11-22] MEDS: Vancomycin HCl 1.25 GM in Sodium Chloride 0.9% 250 ML 250 ML IVPB SCH (13:14)
[2018-11-22] MEDS ORDERED: Piperacillin/Tazobactam 4.5 GM VIAL IVPB SCH (14:00)
[2018-11-22] MEDS: Gabapentin 100 MG CAP PO SCH ×2 (14:53→21:04)
[2018-11-22] MEDS: Piperacillin/Tazobactam 4.5 GM in Sodium Chloride 0.9% 100 ML IVPB SCH ×2 (14:53→20:58)
[2018-11-22] MEDS: Furosemide 40 MG/4 ML VIAL SLOW IVP SCH (14:54)
[2018-11-22 15:29] LABS: Troponin I 0.011 ng/mL (< 0.028)
[2018-11-22] MEDS: Mometasone/Formoterol 120 PUFF INHALER INH SCH (19:03)
[2018-11-22] MEDS ORDERED: Non-Formulary Item 1 EACH (Sotalol Hcl [Sotalol] 120 MG) PO SCH (21:00)
[2018-11-22] MEDS ORDERED: Non-Formulary Item 1 EACH (Ranolazine [Ranexa] 1,000 MG) PO SCH (21:00)
[2018-11-22] MEDS ORDERED: cycloSPORINE 0.05% Ophthalmic Droperette EA EYE SCH (21:00)
[2018-11-22] MEDS ORDERED: Vancomycin HCl 750 MG VIAL IVPB SCH (21:00)
[2018-11-22] MEDS: Apixaban 5 MG TAB PO SCH (21:01)
[2018-11-22] MEDS: Docusate 100 MG CAP PO SCH (21:02)
[2018-11-22] MEDS: Bacitracin Zinc 1 Packet TOP SCH (21:02)
[2018-11-22] MEDS: Ezetimibe 10 MG TAB PO SCH (21:02)
[2018-11-22] MEDS: Famotidine 20 MG TAB PO SCH (21:04)
[2018-11-22] MEDS: Melatonin 3 MG TAB PO SCH (21:04)
[2018-11-22] MEDS: Saccharomyces boulardii 250 MG CAP PO SCH (21:05)
[2018-11-22] MEDS: Sotalol HCl 80 MG TAB PO SCH (21:05)
[2018-11-22] MEDS: cycloSPORINE 0.05% Ophthalmic Droperette EA EYE SCH (21:05)
[2018-11-22] MEDS: HYDROcodone/Acetaminophen 7.5/325 mg Tablet PO PRN (21:06)
--- NOTE | 2018-11-22 21:19 | PDOC.EVN ---
Event Note - Event Note Event Note: Informed at 19:45 re: patient with penile irritation due to constant dribbling. Given Lasix for Acute on chronic CHF. He is normally incontinent with urine, per RN. Had redness and irritation prior to admission, further irritated since starting Lasix. Jamison catheter, UA/UCx and bactiracin to affected area ordered. ADDENDUM: Informed RN unable to place jamison due to degree of swelling. Unable to traverse meatus. Patient with discomfort/distention. Bladder scan done: >1,[address] Izquierdo informed. Will contact Dr. Castellon re: suprapubic cath. Vitals stable.
[2018-11-22 22:23] LABS: Bilirubin Negative (Negative); Blood, Urine Moderate (Negative); Clarity CLEAR (Clear); Glucose, Urine (Dipstick) Negative (Negative); Leukocyte Negative (Negative); Nitrite Negative (Negative); Protein, Urine (Dipstick) Negative (Neg-Trace); Specific Gravity, Urine 1.009 (1.002-1.036); Urobilinogen 0.2 mg/dL (0.2-1.0); pH, Urine 5.5 (5.0-9.0)
[2018-11-22 22:25] LABS: Bacteria/HPF None Seen HPF (None Seen); Hyaline Casts/LPF 0-3 HYALINE CAST LPF (0-3 Hyaline); Squamous Epithelial None Seen HPF (0-3)
[2018-11-22 22:27] LABS: Urine Culture Reflex Yes Yes
--- NOTE | 2018-11-22 23:00 | CON ---
DATE OF CONSULTATION: 11/22/2018 HISTORY OF PRESENT ILLNESS: This is an 88-year-old white male I was asked to see as he is in urinary retention and nurses are unable to pass a Pandey catheter. Apparently, this patient was brought over from [facility]. He had been getting IV antibiotics there for L4-L5 osteomyelitis. He was given Lasix here, could not urinate, got distended. Nurses could not pass a catheter and a bladder scan showed over a liter in his bladder. He has been having some trouble urinating. He is a former patient of Dr. Ge Singletary and remembers having some type of a procedure done by Dr. Singletary a number of years ago, but cannot remember what it was. PAST MEDICAL HISTORY: Coronary artery disease, has had cardiac stents. He has sleep apnea. He has had hip replacement. He has had back problems including this current infection, which he is on IV antibiotics for. He has had numerous back surgeries. He has had pacemaker, he has hypertension. He has atrial fibrillation, is on Eliquis. He has peripheral vascular disease. He has had a coronary artery bypass graft. MEDICATIONS: His medications are listed and include Eliquis and Flomax, and he is also on Zosyn and vancomycin. PHYSICAL EXAMINATION: He is not circumcised. He has a dorsal jimenez. It appears that he has had a urethrostomy done and I believe that is prior to the procedure Dr. Singletary did. Nurses were trying to get a catheter in through the meatus that was toward the tip of the penis, but this was not patent, but further down the shaft about mid shaft, there was an ostium, it appears this urinating through, but he says he has not been able to look down there for a number years and does not remember. It was slightly narrowed. I went ahead and prepped him with Betadine, placed some 2% topical xylocaine jelly for anesthetic, used a 16 and an 18 Jonathan sound to dilate this and then we were able to pass a 16-Kiswahili Pandey catheter without difficulty getting a clear urine, 10 mL was placed in the balloon. We will leave his catheter in until it is no longer needed in terms of his diuresis. However, the amount of urine that he had in his bladder, he will probably need to have it in for a few days, as he was fairly distended with over a liter in his bladder. I will follow along with you over the next few days while he is here. Job ID: [id number]
[2018-11-23] MEDS: Furosemide 40 MG/4 ML VIAL SLOW IVP SCH ×2 (05:15→14:34)
[2018-11-23] MEDS: Piperacillin/Tazobactam 4.5 GM in Sodium Chloride 0.9% 100 ML IVPB SCH ×3 (05:15→21:25)
[2018-11-23 05:49] LABS: #Eosinphils 0.7 thou/uL (0.0-0.7); #Lymphocytes 1.8 thou/uL (1.20-3.40); #Monocytes 0.9 thou/uL (0.11-0.59); #Neutrophils 3.5 thou/uL (1.40-6.50); %Basophils 0.5 % (0.0-1.0); %Eosinophils 9.7 % (0.0-10.0); %Lymphocytes 26.3 % (21.0-51.0); %Monocytes 13.3 % (0.0-10.0); %Neutrophils 50.2 % (42.0-75.0); Hemoglobin 10.3 g/dL (14.0-18.0); Mean Corpuscular HGB CONC 33.1 g/dL (32.0-36.0); Mean Corpuscular Hemoglobin 33.2 pg (27.0-31.0); Mean Platelet Volume 6.9 fL (7.4-10.4); Platelet Count 244 thou/uL (130-400); RBC Distribution Width 13.7 % (11.5-14.5); Red Blood Cell (RBC) Count 3.09 mill/uL (4.70-6.10)
[2018-11-23 06:10] LABS: Anion Gap 10 mmol/L (10-20); BUN (Urea Nitrogen) 17 mg/dL (8.4-25.7); Calc. Creatinine Clearance 61 mL/min (70-130); Calcium 8.8 mg/dL (7.8-10.44); Carbon Dioxide 28 mmol/L (23-31); Chloride 102 mmol/L (98-107); Estimated GFR-MDRD 68; Glucose 98 mg/dL (83-110); Magnesium 1.7 mg/dL (1.6-2.6); Potassium 3.3 mmol/L (3.5-5.1); Sodium 137 mmol/L (136-145); Uric Acid 3.9 mg/dL (3.5-7.2)
[2018-11-23] MEDS: Mometasone/Formoterol 120 PUFF INHALER INH SCH ×2 (07:33→19:00)
[2018-11-23] MEDS ORDERED: Potassium Chloride 20 MEQ TAB PO SCH (08:00)
[2018-11-23] MEDS: Bacitracin Zinc 1 Packet TOP SCH ×3 (08:49→21:25)
[2018-11-23] MEDS: Apixaban 5 MG TAB PO SCH ×2 (08:49→21:11)
[2018-11-23] MEDS: Docusate 100 MG CAP PO SCH ×2 (08:50→21:11)
[2018-11-23] MEDS: Polyethylene Glycol 3350 17 GM Packet PO SCH (08:50)
[2018-11-23] MEDS: Saccharomyces boulardii 250 MG CAP PO SCH ×2 (08:50→21:12)
[2018-11-23] MEDS: Famotidine 20 MG TAB PO SCH ×2 (08:50→21:10)
[2018-11-23] MEDS: Gabapentin 100 MG CAP PO SCH ×3 (08:50→21:10)
[2018-11-23] MEDS: Sotalol HCl 80 MG TAB PO SCH ×2 (08:51→21:12)
[2018-11-23] MEDS: Tamsulosin HCl 0.4 MG CAP PO SCH (08:52)
[2018-11-23] MEDS ORDERED: Non-Formulary Item 1 EACH (Fluticasone/Vilanterol [Breo Ellipta 200-25 Mcg Inh] 1 EACH) IH SCH (09:00)
--- NOTE | 2018-11-23 10:14 | PDOC.PN ---
- Subjective Encounter Start Date: 11/23/18 Encounter Start Time: 08:00 -: old records requested/rev yesterday pt had urinary retention so urology placed jamison catheter, pt has very good diuretic response and he is overall doing better - Objective Resuscitation Status - Order Detail: 11/22/18 09:44 Resuscitation Status Routine Resuscitation Status: FULL: Full Resuscitation MAR Reviewed: Yes Vital Signs & Weight: Vital Signs (12 hours) Temp Pulse Resp BP Pulse Ox 11/23/18 07:33 70 12 11/23/18 07:32 98.5 F 77 16 123/85 95 11/23/18 04:09 97.9 F 69 16 135/67 92 L Weight Weight 186 lb 9.6 oz I&O: 11/22/18 11/23/18 11/24/18 06:59 06:59 06:59 Intake Total 940 Output Total 4200 Balance -3260 Result Diagrams: 11/23/18 05:12 11/23/18 05:12 EKG Reviewed by me: Yes Phys Exam - Physical Examination Constitutional: NAD HEENT: PERRLA, moist MMs, sclera anicteric Neck: supple, full ROM Respiratory: no wheezing, no rhonchi few scattered rales Cardiovascular: no significant murmur, no rub, irregular Gastrointestinal: soft, non-tender, no distention, positive bowel sounds Musculoskeletal: pulses present, edema present jamison+ Neurological: non-focal, normal sensation, moves all 4 limbs Lymphatic: no nodes Psychiatric: normal affect, A&O x 3 Skin: no rash, normal turgor Dx/Plan (1) Acute on chronic combined systolic and diastolic ACC/AHA stage C congestive heart failure Code(s): I50.43 - ACUTE ON CHRONIC COMBINED SYSTOLIC AND DIASTOLIC HRT FAIL Status: Acute (2) Acute urinary retention Code(s): R33.8 - OTHER RETENTION OF URINE Status: Acute (3) JENN (obstructive sleep apnea) Code(s): G47.33 - OBSTRUCTIVE SLEEP APNEA (ADULT) (PEDIATRIC) Status: Chronic (4) BPH (benign prostatic hyperplasia) Code(s): N40.0 - BENIGN PROSTATIC HYPERPLASIA WITHOUT LOWER URINRY TRACT SYMP Status: Chronic (5) Lumbar discitis Code(s): M46.46 - DISCITIS, UNSPECIFIED, LUMBAR REGION Status: Chronic Comment: with osteomyelitis and lumbar radiculopathy, on vancomycin and zosyn, end of therapy 12/21/18 (6) Atrial fibrillation Code(s): I48.91 - UNSPECIFIED ATRIAL FIBRILLATION Status: Chronic Qualifiers: Atrial fibrillation type: chronic Qualified Code(s): I48.2 - Chronic atrial fibrillation Comment: on Bette (7) CAD (coronary artery disease) Code(s): I25.10 - ATHSCL HEART DISEASE OF [place] CORONARY ARTERY W/O ANG PCTRS Status: Chronic (8) Hypertension Code(s): I10 - ESSENTIAL (PRIMARY) HYPERTENSION Status: Chronic (9) PVD (peripheral vascular disease) Code(s): I73.9 - PERIPHERAL VASCULAR DISEASE, UNSPECIFIED Status: Chronic (10) Macrocytic anemia Code(s): D53.9 - NUTRITIONAL ANEMIA, UNSPECIFIED Status: Chronic (11) Hypokalemia Code(s): E87.6 - HYPOKALEMIA Status: Acute - Plan cont current plan of care, jamison catheter * continue lasix , he will need another 2 days IV lasix therapy * continue vancomycin and zosyn for discites * replace potassium * expecting discharge on Saturday back to [place] * repeat labs tomorrow * seems like he will need jamison on discharge and outpt follow up with urology for voiding trial * medication reviewed as below * symptomatic treatment. Review of Systems - Review of Systems Eyes: negative: Pain, Vision Change, Conjunctivae Inflammation, Eyelid Inflammation, Redness, Other ENT: negative: Ear Pain, Ear Discharge, Nose Pain, Nose Discharge, Nose Congestion, Mouth Pain, Mouth Swelling, Throat Pain, Throat Swelling, Other Respiratory: SOB with Excertion. negative: Cough, Dry, Shortness of Breath, Hemoptysis, Pleuritic Pain, Sputum, Wheezing Cardiovascular: edema. negative: chest pain, palpitations, orthopnea, paroxysmal nocturnal dyspnea, light headedness, other Gastrointestinal: negative: Nausea, Vomiting, Abdominal Pain, Diarrhea, Constipation, Melena, Hematochezia, Other Genitourinary: Retention. negative: Dysuria, Frequency, Incontinence, Hematuria , Other Musculoskeletal: negative: Neck Pain, Shoulder Pain, Arm Pain, Back Pain, Hand Pain, Leg Pain, Foot Pain, Other Skin: negative: Rash, Lesions, Saúl, Bruising, Other - Medications/Allergies Allergies/Adverse Reactions: Allergies Allergy/AdvReac Type Severity Reaction Status Date / Time No Known Allergies Allergy Verified 11/22/18 12:24 Medications: Current Medications Acetaminophen (Tylenol) 650 mg PO Q4H PRN PRN Reason: Headache/Fever/Mild Pain (1-3) Hydrocodone Bitart/Acetaminophen ([place] 7.5/325) 1 tab PO Q4H PRN PRN Reason: Moderate Pain (4-6) Last Admin: 11/22/18 21:06 Dose: 1 tab Apixaban (Eliquis) 5 mg PO BID [facility] Last Admin: 11/23/18 08:49 Dose: 5 mg Bacitracin Zinc (Bacitracin) 1 pk TOP TID [facility] Last Admin: 11/23/18 08:49 Dose: 1 pk Bisacodyl (Dulcolax) 10 mg [place] DAILYPRN PRN PRN Reason: Constipation Calcium Carbonate (Tums) 1,000 mg PO Q4H PRN PRN Reason: Heartburn or Indigestion Last Admin: 11/22/18 16:58 Dose: 1,000 mg Cyclobenzaprine HCl (Flexeril) 5 mg PO BID PRN PRN Reason: Muscle Spasm Cyclosporine (Restasis) 0 ml EA EYE BID [facility] Last Admin: 11/22/18 21:05 Dose: Not Given Docusate Sodium (Colace) 100 mg PO BID [facility] Last Admin: 11/23/18 08:50 Dose: Not Given Ezetimibe (Zetia) 10 mg PO HS [facility] Last Admin: 11/22/18 21:02 Dose: 10 mg Famotidine (Pepcid) 20 mg PO BID [facility] Last Admin: 11/23/18 08:50 Dose: 20 mg Furosemide (Lasix) 40 mg SLOW IVP 0600,1400 [facility] Last Admin: 11/23/18 05:15 Dose: 40 mg Gabapentin (Neurontin) 200 mg PO TID [facility] Last Admin: 11/23/18 08:50 Dose: 200 mg Guaifenesin (Robitussin Sf) 200 mg PO Q4H PRN PRN Reason: Cough Hydralazine HCl (Apresoline) 10 mg SLOW IVP Q4H PRN PRN Reason: SBP > 180 and HR < 70 Piperacillin Sod/Tazobactam (Sod 4.5 gm/ Sodium Chloride) 100 mls @ 200 mls/hr IVPB Q8HR [facility] Last Admin: 11/23/18 05:15 Dose: 100 mls Vancomycin HCl 1.25 gm/ Sodium (Chloride) 250 mls @ 166.667 mls/hr IVPB Q24HR [facility] Last Admin: 11/22/18 13:14 Dose: 250 mls Loperamide HCl (Imodium) 2 mg PO PRN PRN PRN Reason: Diarrhea/Loose Stools Loratadine (Claritin) 10 mg PO DAILYPRN PRN PRN Reason: Sinus Symptoms Melatonin (Melatonin) 3 mg PO HS [facility] Last Admin: 11/22/18 21:04 Dose: 3 mg Miscellaneous Medication (Pharmacy To Dose) 1 each IVPB ASDIR [facility] Mometasone Furoate/Formoterol Fumar (Dulera 100 Mcg/5 Mcg Inhaler) 2 puff INH BID-RT [facility] Last Admin: 11/23/18 07:33 Dose: 2 puff Nitroglycerin (Nitrostat) 0.4 mg SL Q5MIN PRN PRN Reason: Chest Pain Ondansetron HCl (Zofran Odt) 4 mg PO Q6H PRN PRN Reason: Nausea/Vomiting Ondansetron HCl (Zofran) 4 mg IVP Q6H PRN PRN Reason: Nausea/Vomiting Pantoprazole Sodium (Protonix) 40 mg PO DAILY [facility] Last Admin: 11/23/18 08:50 Dose: 40 mg Polyethylene Glycol (Miralax) 17 gm PO DAILY [facility] Last Admin: 11/23/18 08:50 Dose: Not Given Potassium Chloride (K-Dur) 40 meq PO NOW [facility] Stop: 11/23/18 11:00 Last Admin: 11/23/18 08:49 Dose: 40 meq Ranolazine (Ranexa) 1,000 mg PO BID [facility] Last Admin: 11/23/18 08:50 Dose: 1,000 mg Saccharomyces Boulardii (Florastor) 250 mg PO BID [facility] Last Admin: 11/23/18 08:50 Dose: 250 mg Senna/Docusate Sodium (Senokot S) 2 tab PO BID PRN PRN Reason: Constipation Sodium Chloride ([place] Nasal [place] 0.65%) 0 ml EA NARE QIDPRN PRN PRN Reason: Nasal Congestion Sotalol HCl (Betapace) 120 mg PO BID [facility] Last Admin: 11/23/18 08:51 Dose: 120 mg Tamsulosin HCl (Flomax) 0.8 mg PO DAILY [facility] Last Admin: 11/23/18 08:52 Dose: 0.8 mg Zolpidem Tartrate (Ambien) 5 mg PO HSPRN PRN PRN Reason: Insomnia
[2018-11-23] MEDS: cycloSPORINE 0.05% Ophthalmic Droperette EA EYE SCH ×2 (11:20→21:00)
[2018-11-23] MEDS: Vancomycin HCl 1.25 GM in Sodium Chloride 0.9% 250 ML 250 ML IVPB SCH (12:57)
[2018-11-23] MEDS: Melatonin 3 MG TAB PO SCH (21:10)
[2018-11-23] MEDS: Ezetimibe 10 MG TAB PO SCH (21:11)
[2018-11-23] MEDS: HYDROcodone/Acetaminophen 7.5/325 mg Tablet PO PRN (21:18)
[2018-11-24 05:10] LABS: Platelet Count 233 thou/uL (130-400)
[2018-11-24] MEDS: Piperacillin/Tazobactam 4.5 GM in Sodium Chloride 0.9% 100 ML IVPB SCH ×3 (05:41→21:44)
[2018-11-24] MEDS: Furosemide 40 MG/4 ML VIAL SLOW IVP SCH (05:41)
[2018-11-24] MEDS: Mometasone/Formoterol 120 PUFF INHALER INH SCH ×2 (07:12→18:31)
[2018-11-24] MEDS: Furosemide 40 MG TAB PO SCH (08:38)
[2018-11-24] MEDS: Bacitracin Zinc 1 Packet TOP SCH ×3 (08:38→20:04)
[2018-11-24] MEDS: Apixaban 5 MG TAB PO SCH ×2 (08:38→20:03)
[2018-11-24] MEDS: Polyethylene Glycol 3350 17 GM Packet PO SCH (08:39)
[2018-11-24] MEDS: Gabapentin 100 MG CAP PO SCH ×3 (08:39→20:03)
[2018-11-24] MEDS: Docusate 100 MG CAP PO SCH ×2 (08:39→20:03)
[2018-11-24] MEDS: Sotalol HCl 80 MG TAB PO SCH ×2 (08:40→20:05)
[2018-11-24] MEDS: Saccharomyces boulardii 250 MG CAP PO SCH ×2 (08:40→20:03)
[2018-11-24] MEDS: cycloSPORINE 0.05% Ophthalmic Droperette EA EYE SCH ×2 (08:40→20:04)
[2018-11-24] MEDS: Tamsulosin HCl 0.4 MG CAP PO SCH (08:41)
--- NOTE | 2018-11-24 10:32 | PDOC.PN ---
- Subjective Encounter Start Date: 11/24/18 Encounter Start Time: 07:20 Patient seen and examined. No overnight events pt reports right hip discomfort - Objective Resuscitation Status - Order Detail: 11/22/18 09:44 Resuscitation Status Routine Resuscitation Status: FULL: Full Resuscitation MAR Reviewed: Yes Vital Signs & Weight: Vital Signs (12 hours) Temp Pulse Resp BP Pulse Ox 11/24/18 08:29 98.1 F 80 16 135/58 L 93 L 11/24/18 07:12 80 12 11/24/18 03:16 97.6 F 80 18 137/66 92 L 11/24/18 00:10 98.5 F 79 18 132/67 91 L Weight Weight 183 lb 11.2 oz I&O: 11/23/18 11/24/18 11/25/18 06:59 06:59 06:59 Intake Total 940 1630 Output Total 4200 4800 Balance -3260 -3170 Result Diagrams: 11/24/18 04:27 11/24/18 04:27 EKG Reviewed by me: Yes Phys Exam - Physical Examination Constitutional: NAD HEENT: PERRLA, moist MMs, sclera anicteric Neck: no JVD, supple Respiratory: no wheezing, no rales, no rhonchi Cardiovascular: RRR, no significant murmur, no rub Gastrointestinal: soft, non-tender, no distention, positive bowel sounds jamison+ Musculoskeletal: no edema, pulses present Neurological: non-focal, normal sensation, moves all 4 limbs Lymphatic: no nodes Psychiatric: normal affect, A&O x 3 Skin: no rash, normal turgor Dx/Plan (1) Acute on chronic combined systolic and diastolic ACC/AHA stage C congestive heart failure Code(s): I50.43 - ACUTE ON CHRONIC COMBINED SYSTOLIC AND DIASTOLIC HRT FAIL Status: Acute (2) Acute urinary retention Code(s): R33.8 - OTHER RETENTION OF URINE Status: Acute Comment: required jamison (3) JENN (obstructive sleep apnea) Code(s): G47.33 - OBSTRUCTIVE SLEEP APNEA (ADULT) (PEDIATRIC) Status: Chronic (4) BPH (benign prostatic hyperplasia) Code(s): N40.0 - BENIGN PROSTATIC HYPERPLASIA WITHOUT LOWER URINRY TRACT SYMP Status: Chronic (5) Lumbar discitis Code(s): M46.46 - DISCITIS, UNSPECIFIED, LUMBAR REGION Status: Chronic Comment: with osteomyelitis and lumbar radiculopathy, on vancomycin and zosyn, end of therapy 12/21/18 (6) Atrial fibrillation Code(s): I48.91 - UNSPECIFIED ATRIAL FIBRILLATION Status: Chronic Qualifiers: Atrial fibrillation type: chronic Qualified Code(s): I48.2 - Chronic atrial fibrillation Comment: on [place] (7) CAD (coronary artery disease) Code(s): I25.10 - ATHSCL HEART DISEASE OF [place] CORONARY ARTERY W/O ANG PCTRS Status: Chronic (8) Hypertension Code(s): I10 - ESSENTIAL (PRIMARY) HYPERTENSION Status: Chronic (9) PVD (peripheral vascular disease) Code(s): I73.9 - PERIPHERAL VASCULAR DISEASE, UNSPECIFIED Status: Chronic (10) Macrocytic anemia Code(s): D53.9 - NUTRITIONAL ANEMIA, UNSPECIFIED Status: Chronic (11) Hypokalemia Code(s): E87.6 - HYPOKALEMIA Status: Acute (12) ROBERT (acute kidney injury) Code(s): N17.9 - ACUTE KIDNEY FAILURE, UNSPECIFIED Status: Acute - Plan cont current plan of care, continue antibiotics, social media assistant * change to PO lasix in view of elevated creatinine * his right hip pain may be related with his lumbar discites * he had hip xray in September, was normal * continue iv antibiotics as ordered * repeat labs tomorrow * expecting discharge tomorrow * medication reviewed as below * symptomatic treatment. Review of Systems - Review of Systems ENT: negative: Ear Pain, Ear Discharge, Nose Pain, Nose Discharge, Nose Congestion, Mouth Pain, Mouth Swelling, Throat Pain, Throat Swelling, Other Respiratory: negative: Cough, Dry, Shortness of Breath, Hemoptysis, SOB with Excertion, Pleuritic Pain, Sputum, Wheezing Cardiovascular: negative: chest pain, palpitations, orthopnea, paroxysmal nocturnal dyspnea, edema, light headedness, other Gastrointestinal: negative: Nausea, Vomiting, Abdominal Pain, Diarrhea, Constipation, Melena, Hematochezia, Other Genitourinary: negative: Dysuria, Frequency, Incontinence, Hematuria, Retention , Other Musculoskeletal: negative: Neck Pain, Shoulder Pain, Arm Pain, Back Pain, Hand Pain, Leg Pain, Foot Pain, Other Skin: negative: Rash, Lesions, Saúl, Bruising, Other - Medications/Allergies Allergies/Adverse Reactions: Allergies Allergy/AdvReac Type Severity Reaction Status Date / Time No Known Allergies Allergy Verified 11/22/18 12:24 Medications: Current Medications Acetaminophen (Tylenol) 650 mg PO Q4H PRN PRN Reason: Headache/Fever/Mild Pain (1-3) Hydrocodone Bitart/Acetaminophen ([place] 7.5/325) 1 tab PO Q4H PRN PRN Reason: Moderate Pain (4-6) Last Admin: 11/23/18 21:18 Dose: 1 tab Apixaban (Eliquis) 5 mg PO BID [facility] Last Admin: 11/24/18 08:38 Dose: 5 mg Bacitracin Zinc (Bacitracin) 1 pk TOP TID [facility] Last Admin: 11/24/18 08:38 Dose: 1 pk Bisacodyl (Dulcolax) 10 mg [place] DAILYPRN PRN PRN Reason: Constipation Calcium Carbonate (Tums) 1,000 mg PO Q4H PRN PRN Reason: Heartburn or Indigestion Last Admin: 11/22/18 16:58 Dose: 1,000 mg Cyclobenzaprine HCl (Flexeril) 5 mg PO BID PRN PRN Reason: Muscle Spasm Cyclosporine (Restasis) 0 ml EA EYE BID [facility] Last Admin: 11/24/18 08:40 Dose: Not Given Docusate Sodium (Colace) 100 mg PO BID [facility] Last Admin: 11/24/18 08:39 Dose: 100 mg Ezetimibe (Zetia) 10 mg PO HS [facility] Last Admin: 11/23/18 21:11 Dose: 10 mg Famotidine (Pepcid) 20 mg PO 2100 [facility] Furosemide (Lasix) 40 mg PO DAILY-AC [facility] Last Admin: 11/24/18 08:38 Dose: 40 mg Gabapentin (Neurontin) 200 mg PO TID [facility] Last Admin: 11/24/18 08:39 Dose: 200 mg Guaifenesin (Robitussin Sf) 200 mg PO Q4H PRN PRN Reason: Cough Hydralazine HCl (Apresoline) 10 mg SLOW IVP Q4H PRN PRN Reason: SBP > 180 and HR < 70 Piperacillin Sod/Tazobactam (Sod 4.5 gm/ Sodium Chloride) 100 mls @ 200 mls/hr IVPB Q8HR [facility] Last Admin: 11/24/18 05:41 Dose: 100 mls Vancomycin HCl 1.25 gm/ Sodium (Chloride) 250 mls @ 166.667 mls/hr IVPB Q24HR [facility] Last Admin: 11/23/18 12:57 Dose: 250 mls Loperamide HCl (Imodium) 2 mg PO PRN PRN PRN Reason: Diarrhea/Loose Stools Loratadine (Claritin) 10 mg PO DAILYPRN PRN PRN Reason: Sinus Symptoms Melatonin (Melatonin) 3 mg PO HS [facility] Last Admin: 11/23/18 21:10 Dose: 3 mg Miscellaneous Medication (Pharmacy To Dose) 1 each IVPB ASDIR [facility] Mometasone Furoate/Formoterol Fumar (Dulera 100 Mcg/5 Mcg Inhaler) 2 puff INH BID-RT [facility] Last Admin: 11/24/18 07:12 Dose: 2 puff Nitroglycerin (Nitrostat) 0.4 mg SL Q5MIN PRN PRN Reason: Chest Pain Ondansetron HCl (Zofran Odt) 4 mg PO Q6H PRN PRN Reason: Nausea/Vomiting Ondansetron HCl (Zofran) 4 mg IVP Q6H PRN PRN Reason: Nausea/Vomiting Pantoprazole Sodium (Protonix) 40 mg PO DAILY [facility] Last Admin: 11/24/18 08:39 Dose: 40 mg Polyethylene Glycol (Miralax) 17 gm PO DAILY [facility] Last Admin: 11/24/18 08:39 Dose: Not Given Ranolazine (Ranexa) 1,000 mg PO BID [facility] Last Admin: 11/24/18 08:39 Dose: 1,000 mg Saccharomyces Boulardii (Florastor) 250 mg PO BID [facility] Last Admin: 11/24/18 08:40 Dose: 250 mg Senna/Docusate Sodium (Senokot S) 2 tab PO BID PRN PRN Reason: Constipation Sodium Chloride ([place] Nasal [place] 0.65%) 0 ml EA NARE QIDPRN PRN PRN Reason: Nasal Congestion Sotalol HCl (Betapace) 120 mg PO BID [facility] Last Admin: 11/24/18 08:40 Dose: 120 mg Tamsulosin HCl (Flomax) 0.8 mg PO DAILY [facility] Last Admin: 11/24/18 08:41 Dose: 0.8 mg Zolpidem Tartrate (Ambien) 5 mg PO HSPRN PRN PRN Reason: Insomnia
[2018-11-24 12:31] LABS: Vancomycin, Trough 16.1 ug/mL
[2018-11-24] MEDS: Vancomycin HCl 1.25 GM in Sodium Chloride 0.9% 250 ML 250 ML IVPB SCH (13:40)
[2018-11-24] MEDS: Melatonin 3 MG TAB PO SCH (20:03)
[2018-11-24] MEDS: Ezetimibe 10 MG TAB PO SCH (20:03)
[2018-11-24] MEDS ORDERED: Famotidine 20 MG TAB PO SCH (21:00)
[2018-11-24] MEDS: HYDROcodone/Acetaminophen 7.5/325 mg Tablet PO PRN (21:47)
[2018-11-25 05:18] LABS: Anion Gap 11 mmol/L (10-20); BUN (Urea Nitrogen) 28 mg/dL (8.4-25.7); Calc. Creatinine Clearance 43 mL/min (70-130); Calcium 8.9 mg/dL (7.8-10.44); Carbon Dioxide 33 mmol/L (23-31); Chloride 101 mmol/L (98-107); Estimated GFR-MDRD 46; Glucose 101 mg/dL (83-110); Potassium 3.2 mmol/L (3.5-5.1); Sodium 142 mmol/L (136-145)
[2018-11-25] MEDS: Piperacillin/Tazobactam 4.5 GM in Sodium Chloride 0.9% 100 ML IVPB SCH ×2 (05:18→13:51)
[2018-11-25] MEDS: Mometasone/Formoterol 120 PUFF INHALER INH SCH (08:06)
[2018-11-25] MEDS: Sotalol HCl 80 MG TAB PO SCH (09:15)
[2018-11-25] MEDS: Tamsulosin HCl 0.4 MG CAP PO SCH (09:17)
[2018-11-25] MEDS: Gabapentin 100 MG CAP PO SCH ×2 (09:17→14:39)
[2018-11-25] MEDS: Saccharomyces boulardii 250 MG CAP PO SCH (09:17)
[2018-11-25] MEDS: Apixaban 5 MG TAB PO SCH (09:17)
[2018-11-25] MEDS: Furosemide 40 MG TAB PO SCH (09:18)
[2018-11-25] MEDS: Docusate 100 MG CAP PO SCH (09:18)
[2018-11-25] MEDS: Bacitracin Zinc 1 Packet TOP SCH ×2 (09:18→14:26)
[2018-11-25] MEDS: Polyethylene Glycol 3350 17 GM Packet PO SCH (09:18)
[2018-11-25] MEDS: cycloSPORINE 0.05% Ophthalmic Droperette EA EYE SCH (09:21)
--- NOTE | 2018-11-25 11:04 | PDOC.PN ---
- Subjective Encounter Start Date: 11/25/18 Encounter Start Time: 07:20 Patient seen and examined. No new complaints. No overnight events - Objective Resuscitation Status - Order Detail: 11/22/18 09:44 Resuscitation Status Routine Resuscitation Status: FULL: Full Resuscitation MAR Reviewed: Yes Vital Signs & Weight: Vital Signs (12 hours) Temp Pulse Resp BP BP Pulse Ox 11/25/18 09:15 58 L 11/25/18 08:06 58 L 18 92 L 11/25/18 07:30 98 F 65 18 164/76 H 94 L 11/25/18 04:00 97.4 F L 71 18 116/78 92 L 11/25/18 00:00 98.1 F 77 16 105/50 L 92 L Weight Weight 183 lb 11.2 oz I&O: 11/24/18 11/25/18 11/26/18 06:59 06:59 06:59 Intake Total 1630 1200 Output Total 4800 1750 Balance -3170 -550 Result Diagrams: 11/24/18 04:27 11/25/18 04:24 EKG Reviewed by me: Yes Phys Exam - Physical Examination Constitutional: NAD HEENT: PERRLA, moist MMs, sclera anicteric Neck: no JVD, supple Respiratory: no wheezing, no rales, no rhonchi Cardiovascular: RRR, no significant murmur, no rub Gastrointestinal: soft, non-tender, no distention, positive bowel sounds Musculoskeletal: no edema, pulses present Neurological: non-focal, normal sensation Lymphatic: no nodes Psychiatric: normal affect, A&O x 3 Skin: no rash, normal turgor Dx/Plan (1) Acute on chronic combined systolic and diastolic ACC/AHA stage C congestive heart failure Code(s): I50.43 - ACUTE ON CHRONIC COMBINED SYSTOLIC AND DIASTOLIC HRT FAIL Status: Acute (2) Acute urinary retention Code(s): R33.8 - OTHER RETENTION OF URINE Status: Acute Comment: required jamison (3) JENN (obstructive sleep apnea) Code(s): G47.33 - OBSTRUCTIVE SLEEP APNEA (ADULT) (PEDIATRIC) Status: Chronic (4) BPH (benign prostatic hyperplasia) Code(s): N40.0 - BENIGN PROSTATIC HYPERPLASIA WITHOUT LOWER URINRY TRACT SYMP Status: Chronic (5) Lumbar discitis Code(s): M46.46 - DISCITIS, UNSPECIFIED, LUMBAR REGION Status: Chronic Comment: with osteomyelitis and lumbar radiculopathy, on vancomycin and zosyn, end of therapy 12/21/18 (6) Atrial fibrillation Code(s): I48.91 - UNSPECIFIED ATRIAL FIBRILLATION Status: Chronic Qualifiers: Atrial fibrillation type: chronic Qualified Code(s): I48.2 - Chronic atrial fibrillation Comment: on Elliquis (7) CAD (coronary artery disease) Code(s): I25.10 - ATHSCL HEART DISEASE OF [place] CORONARY ARTERY W/O ANG PCTRS Status: Chronic (8) Hypertension Code(s): I10 - ESSENTIAL (PRIMARY) HYPERTENSION Status: Chronic (9) PVD (peripheral vascular disease) Code(s): I73.9 - PERIPHERAL VASCULAR DISEASE, UNSPECIFIED Status: Chronic (10) Macrocytic anemia Code(s): D53.9 - NUTRITIONAL ANEMIA, UNSPECIFIED Status: Chronic (11) Hypokalemia Code(s): E87.6 - HYPOKALEMIA Status: Acute (12) ROBERT (acute kidney injury) Code(s): N17.9 - ACUTE KIDNEY FAILURE, UNSPECIFIED Status: Acute - Plan cont current plan of care, jamison catheter, continue antibiotics, PT/OT, nephrology social worker * medication reviewed as below * symptomatic treatment * see discharge delfina. Review of Systems - Review of Systems ENT: negative: Ear Pain, Ear Discharge, Nose Pain, Nose Discharge, Nose Congestion, Mouth Pain, Mouth Swelling, Throat Pain, Throat Swelling, Other Respiratory: negative: Cough, Dry, Shortness of Breath, Hemoptysis, SOB with Excertion, Pleuritic Pain, Sputum, Wheezing Cardiovascular: negative: chest pain, palpitations, orthopnea, paroxysmal nocturnal dyspnea, edema, light headedness, other Gastrointestinal: negative: Nausea, Vomiting, Abdominal Pain, Diarrhea, Constipation, Melena, Hematochezia, Other Genitourinary: negative: Dysuria, Frequency, Incontinence, Hematuria, Retention , Other Musculoskeletal: negative: Neck Pain, Shoulder Pain, Arm Pain, Back Pain, Hand Pain, Leg Pain, Foot Pain, Other - Medications/Allergies Allergies/Adverse Reactions: Allergies Allergy/AdvReac Type Severity Reaction Status Date / Time No Known Allergies Allergy Verified 11/22/18 12:24 Medications: Current Medications Acetaminophen (Tylenol) 650 mg PO Q4H PRN PRN Reason: Headache/Fever/Mild Pain (1-3) Hydrocodone Bitart/Acetaminophen (Smoot 7.5/325) 1 tab PO Q4H PRN PRN Reason: Moderate Pain (4-6) Last Admin: 11/24/18 21:47 Dose: 1 tab Apixaban (Eliquis) 5 mg PO BID [facility] Last Admin: 11/25/18 09:17 Dose: 5 mg Bacitracin Zinc (Bacitracin) 1 pk TOP TID [facility] Last Admin: 11/25/18 09:18 Dose: Not Given Bisacodyl (Dulcolax) 10 mg IA DAILYPRN PRN PRN Reason: Constipation Calcium Carbonate (Tums) 1,000 mg PO Q4H PRN PRN Reason: Heartburn or Indigestion Last Admin: 11/22/18 16:58 Dose: 1,000 mg Cyclobenzaprine HCl (Flexeril) 5 mg PO BID PRN PRN Reason: Muscle Spasm Cyclosporine (Restasis) 0 ml EA EYE BID [facility] Last Admin: 11/25/18 09:21 Dose: 0.4 ml Docusate Sodium (Colace) 100 mg PO BID [facility] Last Admin: 11/25/18 09:18 Dose: 100 mg Ezetimibe (Zetia) 10 mg PO HS [facility] Last Admin: 11/24/18 20:03 Dose: 10 mg Famotidine (Pepcid) 20 mg PO 2100 [facility] Last Admin: 11/24/18 20:05 Dose: 20 mg Furosemide (Lasix) 40 mg PO DAILY-AC [facility] Last Admin: 11/25/18 09:18 Dose: 40 mg Gabapentin (Neurontin) 200 mg PO TID [facility] Last Admin: 11/25/18 09:17 Dose: 200 mg Guaifenesin (Robitussin Sf) 200 mg PO Q4H PRN PRN Reason: Cough Hydralazine HCl (Apresoline) 10 mg SLOW IVP Q4H PRN PRN Reason: SBP > 180 and HR < 70 Piperacillin Sod/Tazobactam (Sod 4.5 gm/ Sodium Chloride) 100 mls @ 200 mls/hr IVPB Q8HR [facility] Last Admin: 11/25/18 05:18 Dose: 100 mls Vancomycin HCl 1.25 gm/ Sodium (Chloride) 250 mls @ 166.667 mls/hr IVPB Q24HR [facility] Last Admin: 11/24/18 13:40 Dose: 250 mls Loperamide HCl (Imodium) 2 mg PO PRN PRN PRN Reason: Diarrhea/Loose Stools Loratadine (Claritin) 10 mg PO DAILYPRN PRN PRN Reason: Sinus Symptoms Melatonin (Melatonin) 3 mg PO HS [facility] Last Admin: 11/24/18 20:03 Dose: 3 mg Miscellaneous Medication (Pharmacy To Dose) 1 each IVPB ASDIR [facility] Mometasone Furoate/Formoterol Fumar (Dulera 100 Mcg/5 Mcg Inhaler) 2 puff INH BID-RT [facility] Last Admin: 11/25/18 08:06 Dose: 2 puff Nitroglycerin (Nitrostat) 0.4 mg SL Q5MIN PRN PRN Reason: Chest Pain Ondansetron HCl (Zofran Odt) 4 mg PO Q6H PRN PRN Reason: Nausea/Vomiting Ondansetron HCl (Zofran) 4 mg IVP Q6H PRN PRN Reason: Nausea/Vomiting Pantoprazole Sodium (Protonix) 40 mg PO DAILY [facility] Last Admin: 11/25/18 09:17 Dose: 40 mg Polyethylene Glycol (Miralax) 17 gm PO DAILY [facility] Last Admin: 11/25/18 09:18 Dose: Not Given Ranolazine (Ranexa) 1,000 mg PO BID [facility] Last Admin: 11/25/18 09:15 Dose: 1,000 mg Saccharomyces Boulardii (Florastor) 250 mg PO BID [facility] Last Admin: 11/25/18 09:17 Dose: 250 mg Senna/Docusate Sodium (Senokot S) 2 tab PO BID PRN PRN Reason: Constipation Sodium Chloride ([place] Nasal [place] 0.65%) 0 ml EA NARE QIDPRN PRN PRN Reason: Nasal Congestion Sotalol HCl (Betapace) 120 mg PO BID [facility] Last Admin: 11/25/18 09:15 Dose: 120 mg Tamsulosin HCl (Flomax) 0.8 mg PO DAILY [facility] Last Admin: 11/25/18 09:17 Dose: 0.8 mg Zolpidem Tartrate (Ambien) 5 mg PO HSPRN PRN PRN Reason: Insomnia
[2018-11-25] MEDS: Vancomycin HCl 1.25 GM in Sodium Chloride 0.9% 250 ML 250 ML IVPB SCH (12:11)
--- NOTE | 2018-11-25 12:32 | DIS ---
DATE OF ADMISSION: 11/22/2018 DATE OF DISCHARGE: 11/25/2018 PRIMARY CARE PHYSICIAN: Joaquin Benavidez MD DISCHARGE DISPOSITION: [facility]. PRIMARY DISCHARGE DIAGNOSES: 1. Acute on chronic combined systolic and diastolic congestive heart failure. 2. Acute urinary retention, requiring Pandey catheter. 3. Acute kidney injury. 4. Hypokalemia. SECONDARY DISCHARGE DIAGNOSES: Peripheral vascular disease; obstructive sleep apnea; macrocytic anemia, lumbar diskitis, on antibiotic therapy; hypertension; coronary artery disease; benign enlargement of prostate; atrial fibrillation. PRIMARY PROCEDURE/OPERATION: Pandey catheterization by Dr. Castellon. RADIOLOGICAL INVESTIGATION: Chest x-ray showed pulmonary vascular congestion. Echocardiography showed EF 40% to 45%, diastolic dysfunction. SIGNIFICANT LABORATORY DATA: WBC 7.0, hemoglobin 10.0. Creatinine 1.46, sodium 142, potassium 3.2. TSH 1.23. Cardiac enzyme negative. Urinalysis unremarkable. Urine culture negative. DISCHARGE MEDICATIONS: 1. [place] 1 tablet q.6 hourly p.r.n. 2. Eliquis 5 mg p.o. b.i.d. 3. Colace 100 mg b.i.d. 4. Zetia 10 mg p.o. at bedtime. 5. Breo Ellipta one inhalation daily. 6. Gabapentin 200 mg t.i.d. 7. Ketotifen ophthalmic drops b.i.d. 8. Melatonin 3 mg p.o. at bedtime. 9. Protonix 40 mg daily. 10. MiraLAX 17 g p.o. daily. 11. Ranexa 1000 mg b.i.d. 12. Restasis ophthalmic drops b.i.d. 13. Sotalol 120 mg b.i.d. 14. Systane ophthalmic drops b.i.d. 15. Flomax 0.8 mg p.o. daily. 16. Zosyn 4.8 g IV q.8 hourly until December 21, 2018. 17. Vancomycin 750 mg IV q.12 hourly until December 21, 2018. 18. Amlodipine 5 mg daily. 19. Vitamin B12 1000 mcg p.o. daily. 20. Flexeril 5 mg b.i.d. p.r.n. 21. Pepcid 20 mg b.i.d. 22. Folic acid 1 mg daily. 23. Lasix 40 mg daily. 24. Zofran 4 mg q.6 hourly p.r.n. 25. Florastor 250 mg b.i.d. 26. Senokot two tablet b.i.d. p.r.n. CONTRAINDICATION: None. CODE STATUS: Full code. INPATIENT RESTAURANT KITCHEN MANAGER: Dr. Quintin Castellon was consulted for urinary retention, who did Pandey catheterization and recommended to leave Pandey catheter in and voiding trial outpatient basis. ALLERGIES: NO KNOWN DRUG ALLERGIES. CONTRAINDICATION: None. DISCHARGE PLAN: Posthospital, the patient is discharged back to [facility]. The patient will follow up with primary mustanger, Dr. Ashton as well as a primary care physician, Dr. Joaquin Benavidez. HOSPITAL COURSE: An 88-year-old male, who was admitted by me. Please see my HPI for further details. The patient was living at [facility], where he was having increasing shortness of breath and he was transferred to emergency room. His chest x-ray was consistent with pulmonary edema. He was treated with Lasix while in hospital with significant clinical improvement. During this admission, echocardiography done which showed systolic and diastolic dysfunction. The patient has macrocytic anemia and that is why we started folic acid and vitamin B12 therapy. While in hospital, we corrected his hypokalemia. This patient developed acute urinary retention and it was very difficult to place Pandey catheter by Nursing and that is why Urology was consulted and Urology did Pandey catheterization as bladder was significantly distended with urinary retention. Urology recommended to leave Pandey catheter in on discharge. He will have a voiding trial on next Saturday, December 01, 2018, and if he does have problem with urinary retention, then the patient will need outpatient Urology followup. This patient was given antibiotic therapy with vancomycin and Zosyn while in hospital as per outpatient dose. He will finish his antibiotic therapy on December 21, 2018 and subsequently, he will follow up with Dr. Calhoun as an outpatient basis. Overall, the patient is doing much better. He is euvolemic. He is on room air. He is hemodynamically stable. I have seen and examined the patient at bedside today. Please see my progress note from today for further detail. Paperwork for discharge done and discharge medication reconciliation done. Total time spent on discharge 31 minutes. Job ID: [id number]
[2018-11-25 16:19] VITALS: BP 136/59; TEMP 98.3
== END 2018-11-25 17:16 | DRG 292 ==
LOC: ERS 07:47 → 2NO 10:45
PROVIDERS: ADMIT Internal Medicine; ATTEND Internal Medicine
PROC: 0T9B70Z Drainage of Bladder with Drainage Device, Via Natural or Artificial Opening (ICD-10-PCS; principal; 2018-11-22)
DX: I11.0 Hypertensive heart disease with heart failure (principal); N17.9 Acute kidney failure, unspecified; I50.43 Acute on chronic combined systolic (congestive) and diastolic (congestive) heart failure; E87.6 Hypokalemia; I25.10 Atherosclerotic heart disease of native coronary artery without angina pectoris; G47.33 Obstructive sleep apnea (adult) (pediatric); M19.91 Primary osteoarthritis, unspecified site; G89.29 Other chronic pain; K21.9 Gastro-esophageal reflux disease without esophagitis; I48.0 Paroxysmal atrial fibrillation; E78.5 Hyperlipidemia, unspecified; N40.1 Benign prostatic hyperplasia with lower urinary tract symptoms; R33.8 Other retention of urine; M46.46 Discitis, unspecified, lumbar region; I73.9 Peripheral vascular disease, unspecified; D64.9 Anemia, unspecified; Z95.0 Presence of cardiac pacemaker; Z95.5 Presence of coronary angioplasty implant and graft; Z95.1 Presence of aortocoronary bypass graft; Z88.9 Allergy status to unspecified drugs, medicaments and biological substances; Z88.8 Allergy status to other drugs, medicaments and biological substances; Z79.899 Other long term (current) drug therapy
CPT/HCPCS: 36415; 71045; 80048; 80053; 80202; 81001; 82565; 83735; 83880; 84443; 84484; 84550; 85014; 85018; 85025; 85049; 87086; 93005; 93306; 93798; 94640; 94760; 96374; J1940; J2543; J3370; J3490; J7050; J7620

== ENCOUNTER 2019-02-02 07:39 | Observation (INO) | payer MEDICARE ==
[2019-02-02 08:47] LABS: #Eosinphils 0.2 thou/uL (0.0-0.7); #Lymphocytes 2.4 thou/uL (1.20-3.40); #Neutrophils 4.9 thou/uL (1.40-6.50); %Basophils 0.3 % (0.0-1.0); %Eosinophils 1.8 % (0.0-10.0); %Monocytes 11.8 % (0.0-10.0); %Neutrophils 58.1 % (42.0-75.0); Hemoglobin 11.9 g/dL (14.0-18.0); Mean Corpuscular HGB CONC 33.6 g/dL (32.0-36.0); Mean Corpuscular Hemoglobin 31.7 pg (27.0-31.0); Mean Corpuscular Volume 94.3 fL (78.0-98.0); Mean Platelet Volume 6.9 fL (7.4-10.4); Platelet Count 277 thou/uL (130-400); RBC Distribution Width 13.2 % (11.5-14.5); Red Blood Cell (RBC) Count 3.77 mill/uL (4.70-6.10); White Blood Cell (WBC) Count 8.4 thou/uL (4.8-10.8)
[2019-02-02 08:57] LABS: PTT 31.3 SEC (22.9-36.1); Prothrombin Time 13.1 SEC (12.0-14.7)
[2019-02-02 09:09] LABS: Anion Gap 13 mmol/L (10-20); BUN (Urea Nitrogen) 22 mg/dL (8.4-25.7); Calc. Creatinine Clearance 0 mL/min (70-130); Calcium 9.5 mg/dL (7.8-10.44); Carbon Dioxide 28 mmol/L (23-31); Chloride 100 mmol/L (98-107); Estimated GFR-MDRD 50; Glucose 107 mg/dL (83-110); Potassium 4.2 mmol/L (3.5-5.1); Sodium 137 mmol/L (136-145)
[2019-02-02] MEDS ORDERED: Levofloxacin 500 mg/D5W 100 ml Premix Bag ONE (09:15)
[2019-02-02] MEDS ORDERED: Bupivacaine 0.25% HCL 30 ML VIAL ONE (09:21)
[2019-02-02] MEDS ORDERED: Fentanyl 100 MCG/2 ML VIAL ONE (09:34)
--- NOTE | 2019-02-02 11:15 | OP ---
DATE OF PROCEDURE: 02/02/2019 PREOPERATIVE DIAGNOSES: Urinary retention and areflexic bladder. POSTOPERATIVE DIAGNOSES: Urinary retention and areflexic bladder. PROCEDURES PERFORMED: Cystoscopy and placement of suprapubic tube, Lowsley technique. ANESTHETIC: General with local. EBL: Minimal. 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 He has an open prostatic urethra. He had no other evidence of urethral stricture disease. He had some mild catheter related cystitis from his indwelling Pandey. Otherwise, the bladder was clear. DRAINS PLACED: A 22-Singaporean 30 mL suprapubic tube and 18-Singaporean 20 mL Pandey. DESCRIPTION OF PROCEDURE: Obtained written and verbal consent from the patient after receiving IV Levaquin, he was taken to the operating suite. He was placed in a supine position on the treatment table. PlexiPulses were placed on his lower extremities and turned on. He was given a general anesthetic and oral intubation. He was placed in the dorsal lithotomy position. He was shaved and then, he was sterilely prepped and draped. Cystoscopy was performed with a 22-Singaporean sheath, this was well lubricated and passed under direct vision through the urethral meatus and across the prostatic urethra into the bladder. The bladder was filled and emptied a number of times and was filled with both the 30 and the 70-degree lens. The bladder was filled and about 70 cm of water until it was easily palpable in the suprapubic region and then, we filled it a bit more after that extended as much as we could. We removed the scope and passed the Lowsley well lubricated into the bladder. We infiltrated about 2 to 2.5 fingerbreadths above the pubic symphysis with 0.25% Marcaine and we used a spinal needle to infiltrate down through the soft tissues until we entered the bladder. This was actually done before we removed the scope. Then, once the scope was removed, the Lowsley was brought in, we cut down across this line and cut down onto the Lowsley, until the Lowsley came out through this incision. We then used this and a 0 silk tie to direct the suprapubic tube into the bladder, blowing up the balloon while it was in the bladder under direct vision with the cystoscope. It was seen to be in good position, it was draining well. There was minimal bleeding. The instruments were removed. An 18-Singaporean urethral catheter was placed about 20 mL, placed in that balloon, both the urethral catheter and the Pandey catheter draining well. We irrigated out the suprapubic site with sterile saline and then used a 0 silk suture to close the skin on one side of the SP tube site and then, wrapped this around the suprapubic tube itself as a safety measure. Dressings were then placed. He was taken out of the dorsal lithotomy position. Each of the catheters were hooked up to drainage and he was awakened and taken by stretcher to recovery room. Job ID: [id number]
[2019-02-02] MEDS ORDERED: PROPOFOL 200 MG/20 ML VIAL ONE (11:24)
[2019-02-02] MEDS ORDERED: Ondansetron PF 4 MG/2 ML Vial ONE (11:24)
[2019-02-02] MEDS ORDERED: Lidocaine 1% PF 5 ML VIAL ONE (11:24)
[2019-02-02] MEDS ORDERED: traMADol HCl 50 MG TAB PO PRN (17:48)
[2019-02-02] MEDS ORDERED: Docusate 100 MG CAP PO PRN (17:51)
[2019-02-02] MEDS ORDERED: HYDROcodone/Acetaminophen 7.5/325 mg Tablet PO PRN (17:53)
[2019-02-02 18:39] VITALS: BMI 26.9
[2019-02-02] MEDS: Mometasone/Formoterol 120 PUFF INHALER INH SCH (19:09)
[2019-02-02] MEDS: SYSTANE GEL EYE DROP 10 ML 10 GM BOT EA EYE SCH (21:31)
[2019-02-02] MEDS: Sotalol HCl 80 MG TAB PO SCH (21:31)
[2019-02-02] MEDS: Gabapentin 100 MG CAP PO SCH (21:31)
[2019-02-02] MEDS: Potassium Chloride 10 MEQ TAB PO SCH (21:31)
[2019-02-02] MEDS: Ketotifen Fumarate 0.025% Ophth Soln 5 ml Bottle EA EYE SCH (21:32)
[2019-02-02] MEDS: cycloSPORINE 0.05% Ophthalmic Droperette EA EYE SCH (21:32)
[2019-02-03] MEDS: Dextrose 5 %-0.45 % NaCl 1,000 ML IV SCH ×2 (00:54→08:47)
[2019-02-03] MEDS ORDERED: Cipro 250 MG TAB PO SCH (06:00)
[2019-02-03] MEDS: Mometasone/Formoterol 120 PUFF INHALER INH SCH (07:02)
[2019-02-03 07:23] LABS: #Eosinphils 0.1 thou/uL (0.0-0.7); #Lymphocytes 2.4 thou/uL (1.20-3.40); #Monocytes 0.9 thou/uL (0.11-0.59); #Neutrophils 4.6 thou/uL (1.40-6.50); %Eosinophils 1.3 % (0.0-10.0); %Lymphocytes 30.2 % (21.0-51.0); %Monocytes 10.9 % (0.0-10.0); %Neutrophils 57.6 % (42.0-75.0); Hemoglobin 10.5 g/dL (14.0-18.0); Mean Corpuscular Volume 93.9 fL (78.0-98.0); Platelet Count 245 thou/uL (130-400); RBC Distribution Width 13.2 % (11.5-14.5); White Blood Cell (WBC) Count 8.1 thou/uL (4.8-10.8)
[2019-02-03] MEDS: Gabapentin 100 MG CAP PO SCH (08:48)
[2019-02-03] MEDS: Sotalol HCl 80 MG TAB PO SCH (08:48)
[2019-02-03] MEDS: Potassium Chloride 10 MEQ TAB PO SCH (08:50)
[2019-02-03] MEDS: Ketotifen Fumarate 0.025% Ophth Soln 5 ml Bottle EA EYE SCH (08:52)
[2019-02-03] MEDS: SYSTANE GEL EYE DROP 10 ML 10 GM BOT EA EYE SCH (08:52)
[2019-02-03] MEDS ORDERED: Cyanocobalamin (Vitamin B-12) 1,000 MCG TAB PO SCH (09:00)
[2019-02-03] MEDS ORDERED: Amlodipine 5 MG TAB PO SCH (09:00)
[2019-02-03] MEDS ORDERED: Folic Acid 1 MG TAB PO SCH (09:00)
[2019-02-03] MEDS ORDERED: Furosemide 40 MG TAB PO SCH (09:00)
[2019-02-03] MEDS: cycloSPORINE 0.05% Ophthalmic Droperette EA EYE SCH (09:17)
[2019-02-03 10:50] VITALS: BP 113/71; TEMP 98.4
--- NOTE | 2019-02-03 22:55 | EKG ---
Test Reason : PREOP Blood Pressure : / mmHG Vent. Rate : 063 BPM Atrial Rate : 063 BPM P-R Int : 000 ms QRS Dur : 128 ms QT Int : 658 ms P-R-T Axes : 000 -47 -22 degrees QTc Int : 673 ms Electronic atrial pacemaker Left axis deviation Non-specific intra-ventricular conduction block Inferior infarct , age undetermined Abnormal ECG When compared with ECG of 22-NOV-2018 08:26, T wave inversion now evident in Inferior leads Nonspecific T wave abnormality, improved in Lateral leads QT has lengthened Confirmed by Didier REYES ([id number]) on 02/03/2019 10:55:06 PM Referred By: JET Confirmed By:Didier REYES
== END 2019-02-03 13:33 | disposition home or self-care (01) ==
LOC: SDC 07:39 → SURG B 17:47
PROVIDERS: ADMIT Urology; ATTEND Urology
PROC: 0TH Urinary System, Insertion (ICD-10-PCS; principal; 2019-02-02)
DX: R33.9 Retention of urine, unspecified (principal); N31.9 Neuromuscular dysfunction of bladder, unspecified; I10 Essential (primary) hypertension; J44.9 Chronic obstructive pulmonary disease, unspecified; I25.10 Atherosclerotic heart disease of native coronary artery without angina pectoris; G47.30 Sleep apnea, unspecified; E78.5 Hyperlipidemia, unspecified; I49.5 Sick sinus syndrome; M86.9 Osteomyelitis, unspecified; I48.91 Unspecified atrial fibrillation; I27.20 Pulmonary hypertension, unspecified; Z95.1 Presence of aortocoronary bypass graft; Z79.02 Long term (current) use of antithrombotics/antiplatelets; Z79.899 Other long term (current) drug therapy
CPT/HCPCS: 51102; 80048; 85025 ×2; 85610; 85730; 93005; 94640 ×2; 94664; 96360; 96361 ×2; G0378 ×2; 36415; 93010; J1956; J2001; J2405; J2704; J3010; S0020

== ENCOUNTER 2020-09-23 16:27 | Emergency (ER) | payer MEDICARE ==
[2020-09-23 17:40] LABS: Hemoglobin 13.2 g/dL (14.0-18.0); Mean Corpuscular HGB CONC 32.9 g/dL (32.0-36.0); Mean Corpuscular Hemoglobin 34.8 pg (27.0-31.0); Mean Platelet Volume 7.7 fL (7.4-10.4); Platelet Count 259 thou/uL (130-400); RBC Distribution Width 11.5 % (11.5-14.5); Red Blood Cell (RBC) Count 3.79 mill/uL (4.70-6.10); White Blood Cell (WBC) Count 14.6 thou/uL (4.8-10.8)
[2020-09-23 17:43] LABS: ALT (SGPT) 19 U/L (8-55); AST (SGOT) 29 U/L (5-34); Albumin 4.1 g/dL (3.4-4.8); Alkaline Phosphatase 79 U/L (40-110); Anion Gap 14 mmol/L (10-20); BUN (Urea Nitrogen) 30 mg/dL (8.4-25.7); Bilirubin, Total 0.9 mg/dL (0.2-1.2); Calc. Creatinine Clearance 0 mL/min (70-130); Calcium 9.6 mg/dL (7.8-10.44); Carbon Dioxide 27 mmol/L (23-31); Chloride 106 mmol/L (98-107); Globulin 3.8 g/dL (2.4-3.5); Glucose 125 mg/dL (83-110); Protein, Total 7.9 g/dL (5.8-8.1); Sodium 143 mmol/L (136-145)
[2020-09-23 18:01] LABS: SARS-CoV-2 NAA Rapid Test Not Detected (NotDetected)
[2020-09-23 18:01] LABS: #Basophils 0.1 thou/uL (0.0-0.2); #Lymphocytes 4.3 thou/uL (1.20-3.40); #Monocytes 1.5 thou/uL (0.11-0.59); #Neutrophils 8.7 thou/uL (1.40-6.50); %Basophils 0.4 % (0.0-1.0); %Eosinophils 0.2 % (0.0-10.0); %Lymphocytes 29.7 % (21.0-51.0); %Monocytes 9.9 % (0.0-10.0); %Neutrophils 59.8 % (42.0-75.0); MDiff Complete? YES; Macrocytosis SLIGHT = 6-15 cells (100X) (0-5/hpf); Platelet Morphology Comment Appears Adequate; Stomatocytes SLIGHT = 2-5 cells (100X) (0-1/hpf)
[2020-09-23] MEDS ORDERED: Succinylcholine 200 MG/10 ml SYRINGE FS ONE (18:46)
[2020-09-23] MEDS ORDERED: PROPOFOL 200 MG/20 ML VIAL ONE (18:46)
[2020-09-23] MEDS ORDERED: Ondansetron PF 4 MG/2 ML Vial ONE (18:46)
[2020-09-23] MEDS ORDERED: Dexamethasone 20 MG/5 ML VIAL ONE (18:46)
== END 2020-09-23 18:53 | disposition home or self-care (01) ==
LOC: ERS 16:27
PROC: 0DC58ZZ Extirpation of Matter from Esophagus, Via Natural or Artificial Opening Endoscopic (ICD-10-PCS; principal; 2020-09-23)
DX: T18.128A Food in esophagus causing other injury, initial encounter (principal); E78.5 Hyperlipidemia, unspecified; G47.33 Obstructive sleep apnea (adult) (pediatric); K21.9 Gastro-esophageal reflux disease without esophagitis; I25.10 Atherosclerotic heart disease of native coronary artery without angina pectoris; I10 Essential (primary) hypertension; M41.9 Scoliosis, unspecified; M19.90 Unspecified osteoarthritis, unspecified site; Z79.899 Other long term (current) drug therapy
CPT/HCPCS: 0240U; 43247; 80053; 84484; 85025; 93005; 99285; J1100; J2405; J2704

== ENCOUNTER 2020-10-15 18:01 | Day surgery (SDC) | payer MEDICARE ==
[2020-10-15] MEDS ORDERED: Sterile Water 10 ML ONE (20:06)
[2020-10-15 20:37] LABS: #Basophils 0.1 thou/uL (0.0-0.2); #Lymphocytes 3.6 thou/uL (1.20-3.40); #Neutrophils 6.1 thou/uL (1.40-6.50); %Basophils 0.9 % (0.0-1.0); %Eosinophils 0.4 % (0.0-10.0); %Monocytes 9.2 % (0.0-10.0); %Neutrophils 56.5 % (42.0-75.0); Hemoglobin 12.5 g/dL (14.0-18.0); Mean Corpuscular HGB CONC 34.5 g/dL (32.0-36.0); Mean Corpuscular Hemoglobin 36.1 pg (27.0-31.0); Mean Platelet Volume 7.5 fL (7.4-10.4); Platelet Count 230 thou/uL (130-400); RBC Distribution Width 11.1 % (11.5-14.5); Red Blood Cell (RBC) Count 3.46 mill/uL (4.70-6.10); White Blood Cell (WBC) Count 10.8 thou/uL (4.8-10.8)
[2020-10-15 20:48] LABS: ALT (SGPT) 20 U/L (8-55); AST (SGOT) 36 U/L (5-34); Albumin 3.8 g/dL (3.4-4.8); Alkaline Phosphatase 81 U/L (40-110); Anion Gap 16 mmol/L (10-20); BUN (Urea Nitrogen) 27 mg/dL (8.4-25.7); Bilirubin, Total 0.6 mg/dL (0.2-1.2); Calc. Creatinine Clearance 0 mL/min (70-130); Calcium 9.4 mg/dL (7.8-10.44); Carbon Dioxide 25 mmol/L (23-31); Chloride 103 mmol/L (98-107); Globulin 3.9 g/dL (2.4-3.5); Glucose 108 mg/dL (83-110); Protein, Total 7.7 g/dL (5.8-8.1); Sodium 140 mmol/L (136-145)
[2020-10-15] MEDS ORDERED: Fentanyl 100 MCG/2 ML VIAL ONE (20:58)
[2020-10-15] MEDS ORDERED: Ketamine 50 MG/ML (10ML VIAL) ONE (20:58)
[2020-10-15] MEDS ORDERED: Dexamethasone 20 MG/5 ML VIAL ONE (21:26)
[2020-10-15] MEDS ORDERED: Lidocaine 1% PF 5 ML VIAL ONE (21:26)
[2020-10-15] MEDS ORDERED: Succinylcholine 200 MG/10 ml SYRINGE FS ONE (21:26)
[2020-10-15] MEDS ORDERED: Ondansetron PF 4 MG/2 ML Vial ONE (21:26)
[2020-10-15 22:10] LABS: SARS-CoV-2 NAA Rapid Test Not Detected (NotDetected)
== END 2020-10-15 23:58 | disposition home or self-care (01) ==
LOC: ERS 18:01 → SDC/OP 21:18
PROVIDERS: ATTEND Internal Medicine Gastroenterology
PROC: 0DB68ZX Excision of Stomach, Via Natural or Artificial Opening Endoscopic, Diagnostic (ICD-10-PCS; principal; 2020-10-15)
PROC: 0DC38ZZ Extirpation of Matter from Lower Esophagus, Via Natural or Artificial Opening Endoscopic (ICD-10-PCS; 2020-10-15)
DX: T18.128A Food in esophagus causing other injury, initial encounter (principal); K31.7 Polyp of stomach and duodenum; K22.10 Ulcer of esophagus without bleeding; K22.2 Esophageal obstruction; K25.9 Gastric ulcer, unspecified as acute or chronic, without hemorrhage or perforation; K21.9 Gastro-esophageal reflux disease without esophagitis; I10 Essential (primary) hypertension; G47.33 Obstructive sleep apnea (adult) (pediatric); M41.9 Scoliosis, unspecified; M19.90 Unspecified osteoarthritis, unspecified site; E78.5 Hyperlipidemia, unspecified; I25.10 Atherosclerotic heart disease of native coronary artery without angina pectoris; Z79.899 Other long term (current) drug therapy; Z88.8 Allergy status to other drugs, medicaments and biological substances; Z95.1 Presence of aortocoronary bypass graft; Z95.5 Presence of coronary angioplasty implant and graft; Z20.822 Contact with and (suspected) exposure to COVID-19
CPT/HCPCS: 43239; 43247; 71045; 80053; 85025; 88305; 96374; 99285; J1610; U0002; 36415; J1100; J2405; J3010

== ENCOUNTER 2021-01-28 09:52 | Emergency (ER) | payer MEDICARE ==
[~2021-01-28 09:52] MED LIST changes: -ISOVUE-370 76%-LOCM 1 ML ONE; +Iopamidol-370 76% 500 ML 1 ML ONE
[2021-01-28 10:46] LABS: Hemoglobin 11.3 g/dL (14.0-18.0); Mean Corpuscular Hemoglobin 35.8 pg (27.0-31.0); Mean Platelet Volume 7.5 fL (7.4-10.4); Platelet Count 179 thou/uL (130-400); RBC Distribution Width 13.1 % (11.5-14.5); Red Blood Cell (RBC) Count 3.14 mill/uL (4.70-6.10); White Blood Cell (WBC) Count 10.5 thou/uL (4.8-10.8)
[2021-01-28 11:09] LABS: #Lymphocytes 3.3 thou/uL (1.20-3.40); #Monocytes 1.1 thou/uL (0.11-0.59); %Basophils 0.4 % (0.0-1.0); %Eosinophils 0.3 % (0.0-10.0); %Lymphocytes 31.4 % (21.0-51.0); %Monocytes 10.8 % (0.0-10.0); %Neutrophils 57.1 % (42.0-75.0); MDiff Complete? YES; Ovalocytes SLIGHT = 2-5 cells (100X) (0-1/hpf); Polychromasia SLIGHT = 2-3 cells (100X) (0-2/hpf)
[2021-01-28 11:14] LABS: ALT (SGPT) 19 U/L (8-55); AST (SGOT) 34 U/L (5-34); Albumin 3.2 g/dL (3.4-4.8); Alkaline Phosphatase 80 U/L (40-110); Anion Gap 11 mmol/L (10-20); BUN (Urea Nitrogen) 14 mg/dL (8.4-25.7); Bilirubin, Total 0.9 mg/dL (0.2-1.2); Calc. Creatinine Clearance 0 mL/min (70-130); Calcium 8.7 mg/dL (7.8-10.44); Carbon Dioxide 26 mmol/L (23-31); Chloride 102 mmol/L (98-107); Globulin 3.4 g/dL (2.4-3.5); Glucose 111 mg/dL (83-110); Lipase 10 U/L (8-78); Potassium 3.7 mmol/L (3.5-5.1); Protein, Total 6.6 g/dL (5.8-8.1); Sodium 135 mmol/L (136-145)
[2021-01-28 12:20] LABS: SARS-CoV-2 NAA Rapid Test Not Detected (NotDetected)
[2021-01-28 13:44] LABS: Bacteria/HPF 4+ HPF (None Seen); Bilirubin Negative (Negative); Blood, Urine Negative (Negative); Clarity Turbid (Clear); Glucose, Urine (Dipstick) 300 mg/dL (Negative); Ketone, Urine Negative (Negative); Leukocyte 500 Leu/uL (Negative); Nitrite 1+ (Negative); Protein, Urine (Dipstick) 70 mg/dL (Neg-Trace); Renal Epithelial 0-3 HPF (None Seen); Specific Gravity, Urine 1.025 (1.002-1.036); Squamous Epithelial None Seen HPF (0-3); Urobilinogen Normal mg/dL (Less than 2); WBC/HPF Greater than 50 HPF (0-3)
[2021-01-28 14:47] LABS: Bilirubin Negative (Negative); Blood, Urine Negative (Negative); Clarity Clear (Clear); Glucose, Urine (Dipstick) 200 mg/dL (Negative); Ketone, Urine Negative (Negative); Leukocyte 500 Leu/uL (Negative); Nitrite Negative (Negative); Protein, Urine (Dipstick) 20 mg/dL (Neg-Trace); Urobilinogen Normal mg/dL (Less than 2)
[2021-01-28 14:55] LABS: Specific Gravity, Urine Greater than 1.060 (1.002-1.036)
[2021-01-28 14:56] LABS: Bacteria/HPF 2+ HPF (None Seen); RBC/HPF 0-3 HPF (0-3); Squamous Epithelial 0-3 HPF (0-3)
[2021-01-28] MEDS ORDERED: Acetaminophen 325 MG TAB PO PRN (18:13)
[2021-01-28] MEDS ORDERED: Docusate 100 MG CAP PO PRN (18:24)
[2021-01-28] MEDS ORDERED: Famotidine 20 MG TAB PO SCH (21:00)
[2021-01-28] MEDS ORDERED: Sotalol HCl 80 MG TAB PO SCH (21:00)
[2021-01-28] MEDS ORDERED: Non-Formulary Item 1 EACH (Ranolazine [Ranexa] 1,000 MG Tab.Er.12h) PO SCH (21:00)
[2021-01-29] MEDS ORDERED: Mometasone 200 MCG/Formoterol 5 MCG 120 PUFF INHALER INH SCH (06:30)
[2021-01-29] MEDS ORDERED: Furosemide 40 MG TAB PO SCH (09:00)
[2021-01-29] MEDS ORDERED: Non-Formulary Item 1 EACH (Cetirizine Hcl [Zyrtec] 10 MG Capsule) PO SCH (09:00)
[2021-01-29] MEDS ORDERED: Loratadine 10 MG TAB PO SCH (09:00)
[2021-01-29] MEDS ORDERED: Folic Acid 1 MG TAB PO SCH (09:00)
[2021-01-29] MEDS ORDERED: Potassium Chloride 10 MEQ TAB PO SCH ×2 (09:00)
[2021-01-29] MEDS ORDERED: Non-Formulary Item 1 EACH (Fluticasone/Vilanterol [Breo Ellipta 200-25 Mcg Inh] 1 EACH Bl IH SCH (09:00)
[2021-01-29] MEDS ORDERED: Non-Formulary Item 1 EACH (Folic Acid [Folic Acid] 0.8 MG Tablet) PO SCH (09:00)
[2021-01-29] MEDS ORDERED: Enoxaparin Sodium 40 MG/0.4 ML SYRINGE SC SCH (09:00)
[2021-01-29] MEDS ORDERED: Aspirin 81 mg Enteric Coated Tablet PO SCH (09:00)
== END 2021-01-28 17:28 | disposition short-term general hospital (02) ==
LOC: ERS 09:52
DX: I49.9 Cardiac arrhythmia, unspecified (principal); K21.9 Gastro-esophageal reflux disease without esophagitis; I25.10 Atherosclerotic heart disease of native coronary artery without angina pectoris; E78.5 Hyperlipidemia, unspecified; I10 Essential (primary) hypertension; M19.90 Unspecified osteoarthritis, unspecified site; Z20.822 Contact with and (suspected) exposure to COVID-19; Z79.899 Other long term (current) drug therapy
CPT/HCPCS: 36415; 71045; 71275; 80053; 81003; 81015; 83605; 83690; 83880; 84443; 84484; 85025; 87040; 87077; 87086; 87186; 93005; Q9967; U0002; U0005

== ENCOUNTER 2021-12-04 13:21 | Outpatient (CLI) | payer MEDICARE | END 2021-12-04 13:22 | disposition home or self-care (01) | LOC: LABBT 13:21 | PROVIDERS: ATTEND Internal Medicine | DX: Z20.822 Contact with and (suspected) exposure to COVID-19 (principal) | CPT/HCPCS: U0003; U0005 ==

== ENCOUNTER 2021-12-07 10:29 | Day surgery (SDC) | payer MEDICARE ==
[2021-12-05 13:54] VITALS: BMI 24.3
[2021-12-07] MEDS ORDERED: PROPOFOL 200 MG/20 ML VIAL ONE (12:59)
== END 2021-12-07 14:12 | disposition home or self-care (01) ==
LOC: SDC 10:29
PROVIDERS: ATTEND Internal Medicine
PROC: 0D758ZZ Dilation of Esophagus, Via Natural or Artificial Opening Endoscopic (ICD-10-PCS; principal; 2021-12-07)
PROC: 0DB58ZX Excision of Esophagus, Via Natural or Artificial Opening Endoscopic, Diagnostic (ICD-10-PCS; 2021-12-07)
DX: K22.2 Esophageal obstruction (principal); K31.7 Polyp of stomach and duodenum; I48.91 Unspecified atrial fibrillation; I25.10 Atherosclerotic heart disease of native coronary artery without angina pectoris; I10 Essential (primary) hypertension; E78.00 Pure hypercholesterolemia, unspecified; Z79.82 Long term (current) use of aspirin; Z79.899 Other long term (current) drug therapy; Z88.8 Allergy status to other drugs, medicaments and biological substances; Z95.0 Presence of cardiac pacemaker; Z95.1 Presence of aortocoronary bypass graft
CPT/HCPCS: 88305

== ENCOUNTER 2021-12-08 10:55 | Emergency (ER) | payer MEDICARE | END 2021-12-08 12:22 | disposition home or self-care (01) | LOC: ERS 10:55 | DX: S51.812A Laceration without foreign body of left forearm, initial encounter (principal); K21.9 Gastro-esophageal reflux disease without esophagitis; I25.10 Atherosclerotic heart disease of native coronary artery without angina pectoris; E78.5 Hyperlipidemia, unspecified; I10 Essential (primary) hypertension; M19.90 Unspecified osteoarthritis, unspecified site; G47.33 Obstructive sleep apnea (adult) (pediatric); M41.9 Scoliosis, unspecified; I48.91 Unspecified atrial fibrillation; I45.10 Unspecified right bundle-branch block; W18.12XA Fall from or off toilet with subsequent striking against object, initial encounter | CPT/HCPCS: 99283 ==

== ENCOUNTER 2022-01-14 16:15 | Inpatient (IN) | payer MEDICARE ==
[2022-01-14 16:52] LABS: #Eosinphils 0.1 thou/uL (0.0-0.7); #Lymphocytes 2.4 thou/uL (1.20-3.40); #Neutrophils 6.3 thou/uL (1.40-6.50); %Basophils 0.2 % (0.0-1.0); %Eosinophils 0.6 % (0.0-10.0); %Lymphocytes 24.7 % (21.0-51.0); %Monocytes 10.5 % (0.0-10.0); %Neutrophils 64.1 % (42.0-75.0); Hemoglobin 10.7 g/dL (14.0-18.0); Mean Corpuscular Hemoglobin 37.9 pg (27.0-31.0); Mean Platelet Volume 8.4 fL (7.4-10.4); Platelet Count 152 thou/uL (130-400); RBC Distribution Width 12.5 % (11.5-14.5); Red Blood Cell (RBC) Count 2.81 mill/uL (4.70-6.10); White Blood Cell (WBC) Count 9.9 thou/uL (4.8-10.8)
[2022-01-14 17:04] LABS: Clarity Hazy (Clear); Glucose, Urine (Dipstick) Unable to Interpret mg/dL (Negative); Ketone, Urine Unable to Interpret mg/dL (Negative); Leukocyte Unable to Interpret (Negative); Nitrite Unable to Interpret (Negative); Protein, Urine (Dipstick) Unable to Interpret mg/dL (Neg-Trace); pH, Urine 8.7 (5.0-9.0)
[2022-01-14 17:05] LABS: Bilirubin Unable to Interpret (Negative); Blood, Urine Unable to Interpret (Negative); Urobilinogen UNABLE TO INTERPRET mg/dL (Less than 2)
[2022-01-14 17:09] LABS: Bacteria/HPF 2+ HPF (None Seen); Calcium Oxalate Crystals Rare HPF (None Seen); MDiff Complete? YES; Macrocytosis SLIGHT = 6-15 cells (100X) (0-5/hpf); Platelet Morphology Comment Appears Adequate; Polychromasia SLIGHT = 2-3 cells (100X) (0-2/hpf); Squamous Epithelial None Seen HPF (0-3); Vacuoles SLIGHT
[2022-01-14 17:14] LABS: ALT (SGPT) 33 U/L (8-55); AST (SGOT) 77 U/L (5-34); Albumin 2.7 g/dL (3.4-4.8); Alkaline Phosphatase 168 U/L (40-110); Anion Gap 14 mmol/L (10-20); BUN (Urea Nitrogen) 39 mg/dL (8.4-25.7); Bilirubin, Total 0.8 mg/dL (0.2-1.2); CK (CPK) 23 U/L (30-200); Calc. Creatinine Clearance 0 mL/min (70-130); Calcium 8.6 mg/dL (7.8-10.44); Carbon Dioxide 28 mmol/L (23-31); Chloride 101 mmol/L (98-107); Estimated GFR 57; Globulin 3.7 g/dL (2.4-3.5); Glucose 97 mg/dL (83-110); Potassium 5.4 mmol/L (3.5-5.1); Protein, Total 6.4 g/dL (5.8-8.1); Sodium 138 mmol/L (136-145)
[2022-01-14] MEDS ORDERED: cefTRIAXone\\ROCEPHIN 2 GM VIAL ONE (20:54)
[2022-01-14] MEDS ORDERED: Furosemide 20 MG/2 ML VIAL ONE (21:44)
[2022-01-14] MEDS ORDERED: Vancomycin 1.5 GRAM/300 ML BAG 1.5 GM in Premix Bag 1 BAG IVPB SCH (21:45)
[2022-01-14 22:32] LABS: Troponin I 0.023 ng/mL (< 0.028)
[2022-01-15 00:30] LABS: SARS-CoV-2 NAA Rapid Test Not Detected (NotDetected)
[2022-01-15] MEDS ORDERED: Acetaminophen 325 MG TAB PO PRN (03:21)
[2022-01-15] MEDS ORDERED: Ondansetron PF 4 MG/2 ML Vial IVP PRN (03:21)
[2022-01-15 04:50] LABS: #Eosinphils 0.1 thou/uL (0.0-0.7); #Monocytes 0.7 thou/uL (0.11-0.59); #Neutrophils 4.2 thou/uL (1.40-6.50); %Basophils 0.2 % (0.0-1.0); %Eosinophils 0.7 % (0.0-10.0); %Lymphocytes 28.6 % (21.0-51.0); %Monocytes 10.3 % (0.0-10.0); %Neutrophils 60.3 % (42.0-75.0); Mean Corpuscular HGB CONC 33.6 g/dL (32.0-36.0); Mean Corpuscular Hemoglobin 38.4 pg (27.0-31.0); Mean Platelet Volume 8.1 fL (7.4-10.4); Platelet Count 129 thou/uL (130-400); RBC Distribution Width 12.4 % (11.5-14.5); Red Blood Cell (RBC) Count 2.61 mill/uL (4.70-6.10)
[2022-01-15 05:09] LABS: Anion Gap 10 mmol/L (10-20); BUN (Urea Nitrogen) 38 mg/dL (8.4-25.7); Calc. Creatinine Clearance 48 mL/min (70-130); Calcium 8.2 mg/dL (7.8-10.44); Carbon Dioxide 30 mmol/L (23-31); Chloride 101 mmol/L (98-107); Estimated GFR 60; Glucose 82 mg/dL (83-110); Potassium 4.3 mmol/L (3.5-5.1); Sodium 137 mmol/L (136-145)
[2022-01-15] MEDS: Furosemide 40 MG/4 ML VIAL SLOW IVP SCH ×2 (05:27→15:05)
[2022-01-15] MEDS: Cefepime 1 GM in Sodium Chloride 0.9% 100 ML IVPB SCH ×2 (05:27→18:46)
[2022-01-15] MEDS ORDERED: Furosemide 20 MG/2 ML VIAL SLOW IVP SCH (06:00)
[2022-01-15] MEDS: Senokot S 8.6-50 MG TAB PO SCH ×2 (09:00→21:10)
[2022-01-15] MEDS: Polyethylene Glycol 3350 17 GM Packet PO SCH (10:25)
[2022-01-16 04:26] LABS: #Lymphocytes 2.3 thou/uL (1.20-3.40); #Monocytes 0.9 thou/uL (0.11-0.59); #Neutrophils 4.7 thou/uL (1.40-6.50); %Basophils 0.6 % (0.0-1.0); %Eosinophils 0.5 % (0.0-10.0); %Lymphocytes 28.4 % (21.0-51.0); %Monocytes 11.3 % (0.0-10.0); %Neutrophils 59.2 % (42.0-75.0); Hemoglobin 10.1 g/dL (14.0-18.0); Mean Corpuscular Hemoglobin 37.7 pg (27.0-31.0); Mean Platelet Volume 8.2 fL (7.4-10.4); Platelet Count 129 thou/uL (130-400); RBC Distribution Width 12.5 % (11.5-14.5); Red Blood Cell (RBC) Count 2.68 mill/uL (4.70-6.10)
[2022-01-16 04:49] LABS: Anion Gap 14 mmol/L (10-20); BUN (Urea Nitrogen) 39 mg/dL (8.4-25.7); Calc. Creatinine Clearance 41 mL/min (70-130); Calcium 8.2 mg/dL (7.8-10.44); Carbon Dioxide 26 mmol/L (23-31); Chloride 100 mmol/L (98-107); Estimated GFR 50; Glucose 79 mg/dL (83-110); Sodium 136 mmol/L (136-145)
[2022-01-16] MEDS: Cefepime 1 GM in Sodium Chloride 0.9% 100 ML IVPB SCH ×2 (05:34→18:33)
[2022-01-16] MEDS: Furosemide 40 MG/4 ML VIAL SLOW IVP SCH ×2 (05:35→14:50)
[2022-01-16] MEDS ORDERED: Cyanocobalamin 1000 MCG/ML VIAL IM SCH (09:00)
[2022-01-16] MEDS: Folic Acid 1 MG TAB PO SCH (09:40)
[2022-01-16] MEDS: Ferrous Sulfate 325 MG TAB PO SCH (09:40)
[2022-01-16] MEDS: Donepezil HCl 5 MG TAB PO SCH (09:40)
[2022-01-16] MEDS: Potassium Chloride 20 MEQ TAB PO SCH (09:40)
[2022-01-16] MEDS: Aspirin 81 mg Enteric Coated Tablet PO SCH (09:41)
[2022-01-16] MEDS: Loratadine 10 MG TAB PO SCH (09:41)
[2022-01-16] MEDS: Senokot S 8.6-50 MG TAB PO SCH ×2 (09:42→21:37)
[2022-01-16] MEDS: SYSTANE GEL OPHTH DROPS 10 ML EA EYE SCH ×2 (09:42→21:37)
[2022-01-16] MEDS: Polyethylene Glycol 3350 17 GM Packet PO SCH (09:42)
[2022-01-16] MEDS: Mometasone 200 MCG/Formoterol 5 MCG 120 PUFF INHALER INH SCH (18:51)
[2022-01-16] MEDS ORDERED: Rosuvastatin 20 MG TAB PO SCH (21:00)
[2022-01-17 04:44] LABS: #Basophils 0.1 thou/uL (0.0-0.2); #Eosinphils 0.1 thou/uL (0.0-0.7); #Lymphocytes 2.3 thou/uL (1.20-3.40); #Neutrophils 4.4 thou/uL (1.40-6.50); %Basophils 1.1 % (0.0-1.0); %Eosinophils 1.1 % (0.0-10.0); %Lymphocytes 29.2 % (21.0-51.0); %Monocytes 12.4 % (0.0-10.0); %Neutrophils 56.1 % (42.0-75.0); Hemoglobin 10.3 g/dL (14.0-18.0); Mean Corpuscular HGB CONC 33.3 g/dL (32.0-36.0); Mean Corpuscular Hemoglobin 37.2 pg (27.0-31.0); Mean Platelet Volume 7.9 fL (7.4-10.4); Platelet Count 144 thou/uL (130-400); RBC Distribution Width 12.5 % (11.5-14.5); Red Blood Cell (RBC) Count 2.77 mill/uL (4.70-6.10); White Blood Cell (WBC) Count 7.9 thou/uL (4.8-10.8)
[2022-01-17 05:02] LABS: Anion Gap 12 mmol/L (10-20); BUN (Urea Nitrogen) 44 mg/dL (8.4-25.7); Calc. Creatinine Clearance 36 mL/min (70-130); Calcium 8.1 mg/dL (7.8-10.44); Carbon Dioxide 30 mmol/L (23-31); Chloride 99 mmol/L (98-107); Estimated GFR 48; Glucose 104 mg/dL (83-110); Potassium 3.7 mmol/L (3.5-5.1); Sodium 137 mmol/L (136-145)
[2022-01-17] MEDS: Cefepime 1 GM in Sodium Chloride 0.9% 100 ML IVPB SCH (05:10)
[2022-01-17] MEDS: Furosemide 40 MG/4 ML VIAL SLOW IVP SCH ×2 (05:10→15:29)
[2022-01-17] MEDS: Mometasone 200 MCG/Formoterol 5 MCG 120 PUFF INHALER INH SCH (07:25)
[2022-01-17 08:35] VITALS: BMI 22.7
[2022-01-17] MEDS: Polyethylene Glycol 3350 17 GM Packet PO SCH (08:36)
[2022-01-17] MEDS: Folic Acid 1 MG TAB PO SCH (08:38)
[2022-01-17] MEDS: Donepezil HCl 5 MG TAB PO SCH (08:38)
[2022-01-17] MEDS: Aspirin 81 mg Enteric Coated Tablet PO SCH (08:39)
[2022-01-17] MEDS: Potassium Chloride 20 MEQ TAB PO SCH (08:39)
[2022-01-17] MEDS: Loratadine 10 MG TAB PO SCH (08:39)
[2022-01-17] MEDS: Ferrous Sulfate 325 MG TAB PO SCH (08:39)
[2022-01-17] MEDS: Senokot S 8.6-50 MG TAB PO SCH (08:39)
[2022-01-17] MEDS: SYSTANE GEL OPHTH DROPS 10 ML EA EYE SCH (09:54)
[2022-01-17 12:42] VITALS: BP 127/66; TEMP 97.1
== END 2022-01-17 17:07 | disposition home or self-care (01) | DRG 291 ==
LOC: ERS 16:15 → 2NO 21:49
PROVIDERS: ADMIT Internal Medicine; ATTEND Internal Medicine
DX: I11.0 Hypertensive heart disease with heart failure (principal); I50.43 Acute on chronic combined systolic (congestive) and diastolic (congestive) heart failure; I50.813 Acute on chronic right heart failure; Z66 Do not resuscitate; R13.10 Dysphagia, unspecified; E87.5 Hyperkalemia; I25.10 Atherosclerotic heart disease of native coronary artery without angina pectoris; E27.8 Other specified disorders of adrenal gland; K21.9 Gastro-esophageal reflux disease without esophagitis; G47.33 Obstructive sleep apnea (adult) (pediatric); M19.90 Unspecified osteoarthritis, unspecified site; Z96.641 Presence of right artificial hip joint; R31.0 Gross hematuria; G20 Parkinson's disease; F02.80 Dementia in other diseases classified elsewhere, unspecified severity, without behavioral disturbance, psychotic disturbance, mood disturbance, and anxiety; K22.2 Esophageal obstruction; E78.5 Hyperlipidemia, unspecified; Z22.39 Carrier of other specified bacterial diseases; Z95.5 Presence of coronary angioplasty implant and graft; Z95.0 Presence of cardiac pacemaker; Z95.1 Presence of aortocoronary bypass graft; Z90.89 Acquired absence of other organs; Z98.890 Other specified postprocedural states; Z88.8 Allergy status to other drugs, medicaments and biological substances; Z79.899 Other long term (current) drug therapy; Z79.82 Long term (current) use of aspirin
CPT/HCPCS: 36415; 70450; 71045; 74177; 80048; 80053; 81003; 81015; 82550; 83605; 83880; 84484; 85025; 87040; 87077; 87086; 87186; 93005; 96361; 96365; 96367; 96375; J0692; J0696; J1940; J3370; J3420; J3490; Q9967; U0002